=== PATIENT | female | born 1975 | race Caucasian/White ===

== ENCOUNTER 2024-03-26 15:58 | Outpatient (CLI) | payer OTHER, SELFPAY ==
--- NOTE | ~2024-03-26 | MM_ITS ---
EXAMINATION: MM screening slim BI w dinesh HISTORY: Screening TECHNIQUE: Craniocaudal and mediolateral oblique 3-D tomosynthesis images were obtained and synthetic 2-D images were generated. CAD analysis was submitted and interpreted. COMPARISON: No prior mammogram is available for comparison at this institution. BREAST PARENCHYMAL COMPOSITION: There are scattered areas of fibroglandular density. FINDINGS: There is no evidence of suspicious mass, calcification, or architectural distortion to sugg est malignancy in either breast. There has been no suspicious interval change. IMPRESSION: 1. No mammographic evidence of malignancy. 2. Recommend routine screening mammography in one year. BI-RADS Category 1: Negative Reviewed, dictated and finalized at location B.
== END 2024-03-26 15:59 ==
LOC: MICIMG 15:58
PROVIDERS: PCP Nurse Practitioner Obstetrics & Gynecology; Visit Provider Nurse Practitioner Obstetrics & Gynecology
DX: Z12.31 Encounter for screening mammogram for malignant neoplasm of breast (principal)
CPT/HCPCS: 77063; 77067

== ENCOUNTER 2024-09-02 13:39 | Outpatient (CLI) | payer OTHER, SELFPAY ==
--- NOTE | 2024-09-02 14:30 | NEURO_ITS ---
Impression: # Complains of numbness with nocturnal paresthesia of left hand. Non-diabetic. # Left severe Carpal Tunnel Syndrome. # No ulnar neuropathy. # Mildly abnormal Needle/EMG exam in left APB. Nerve Conduction Studies Anti Sensory Summary Table Stim Site NR Peak (ms) P-T Amp (?V) Site1 Site2 Delta-P (ms) Dist (cm) Zachary (m/s) Left Median Anti Sensory (2-3nd Digit) Wrist 6.3 25.5 Wrist 2-3nd Digit 6.3 14.0 22 Wrist 6.2 11.4 Wrist 2-3nd Digit 6.3 14.0 22 Right Median Anti Sensory (2-3nd Digit) Wrist 2.6 71.0 Wrist 2-3nd Digit 2.6 14.0 54 Wrist 2.7 59.8 Wrist 2-3nd Digit 2.6 14.0 54 Left Radial Anti Sensory (Base 1st Digit) Wrist 1.9 38.1 Wrist Base 1st Digit 1.9 0.0 Right Radial Anti Sensory (Base 1st Digit) Wrist 1.8 38.6 Wrist Base 1st Digit 1.8 0.0 Left Ulnar Anti Sensory (5th Digit) Wrist 2.3 76.7 Wrist 5th Digit 2.3 14.0 61 Right Ulnar Anti Sensory (5th Digit) Wrist 2.5 91.3 Wrist 5th Digit 2.5 14.0 56 Motor Summary Table Stim Site NR Onset (ms) O-P Amp (mV) Site1 Site2 Delta-0 (ms) Dist (cm) Zachary (m/s) Left Median Motor (Abd Poll Brev) Wrist 8.0 3.1 Elbow Wrist 4.8 29.0 60 Elbow 12.8 3.4 Right Median Motor (Abd Poll Brev) Wrist 3.1 9.6 Elbow Wrist 4.2 26.0 62 Elbow 7.3 9.1 Left Ulnar Motor (Abd Dig Minimi) Wrist 2.5 7.8 A Elbow Wrist 5.0 31.0 62 A Elbow 7.5 7.4 Right Ulnar Motor (Abd Dig Minimi) Wrist 2.7 6.0 A Elbow Wrist 4.6 29.0 63 A Elbow 7.3 6.2 F Wave Studies NR F-Lat (ms) L-R F-Lat (ms) Left Median (Mrkrs) (Abd Poll Brev) 27.71 1.70 Right Median (Mrkrs) (Abd Poll Brev) 26.02 1.70 Left Ulnar (Mrkrs) (Abd Dig Min) 25.82 0.56 Right Ulnar (Mrkrs) (Abd Dig Min) 25.26 0.56 EMG Side Muscle Nerve Root Ins Act Fibs Amp Dur Recrt Comment Right 1stDorInt Ulnar C8-T1 Nml Nml Nml Nml Nml Right Ext Indicis Radial (Post Int) C7-8 Nml Nml Nml Nml Nml Right Ext Digitorum Radial (Post Int) C7-8 Nml Nml Nml Nml Nml Right BrachioRad Radial C5-6 Nml Nml Nml Nml Nml Right PronatorTeres Median C6-7 Nml Nml Nml Nml Nml Right Abd Poll Brev Median C8-T1 Nml Nml Nml Nml Nml Right ABD Dig Min Ulnar C8-T1 Nml Nml Nml Nml Nml Left 1stDorInt Ulnar C8-T1 Nml Nml Nml Nml Nml Left Ext Indicis Radial (Post Int) C7-8 Nml Nml Nml Nml Nml Left Ext Digitorum Radial (Post Int) C7-8 Nml Nml Nml Nml Nml Left BrachioRad Radial C5-6 Nml Nml Nml Nml Nml Left PronatorTeres Median C6-7 Nml Nml Nml Nml Nml Left Abd Poll Brev Median C8-T1 Nml Nml Nml >12ms +2 Left ABD Dig Min Ulnar C8-T1 Nml Nml Nml Nml Nml MTDD
== END 2024-09-02 13:40 | disposition home or self-care (01) ==
LOC: ANHNEURO 13:41
PROVIDERS: PCP Family Medicine; Visit Provider Nurse Practitioner Adult Health
DX: G56.02 Carpal tunnel syndrome, left upper limb (principal); R94.131 Abnormal electromyogram [EMG]
CPT/HCPCS: 95886; 95911

== ENCOUNTER 2025-01-01 05:52 | Day surgery (SDC) | payer OTHER, SELFPAY ==
[2024-12-11 10:26] VITALS: BMI 31.8
--- OUTSIDE RECORDS SUMMARY | 2025-01-01 06:06 | XMS_ITS ---
Author Organization Unknown Medications Medication Instructions Effective Dates (start - stop) Status 3 ML liraglutide 6 MG/ML Pen Injector [Saxenda] [id number]:00:00.000+00:0 0 - Completed 3 ML liraglutide 6 MG/ML Pen Injector [Saxenda] [id number]:00:00.000+00:0 0 - Completed 3 ML liraglutide 6 MG/ML Pen Injector [Saxenda] [id number]:00:00.000+00:0 0 - Completed 3 ML liraglutide 6 MG/ML Pen Injector [Saxenda] [id number]:00:00.000+00:0 0 - Completed 3 ML liraglutide 6 MG/ML Pen Injector [Saxenda] [id number]:00:00.000+00:0 0 - Completed 3 ML liraglutide 6 MG/ML Pen Injector [Saxenda] [id number]:00:00.000+00:0 0 - Completed 3 ML liraglutide 6 MG/ML Pen Injector [Saxenda] [id number]:00:00.000+00:0 0 - Completed nitrofurantoin, macrocrystal s 50 MG Oral Capsule [id number]:00:00.000+00:0 0 - Completed - [id number]:00 :00.000+00:00 - Completed 24 HR oxybutynin chloride 10 MG Extended Release Oral Tablet [id number]:00:00.000+0 0:00 - Completed 3 ML liraglutide 6 MG/ML Pen Injector [Saxenda] [id number]:00:00.000+00:0 0 - Completed 24 HR oxybutynin chloride 10 MG Extended Release Oral Tablet [id number]:00:00.000+0 0:00 - Completed 3 ML liraglutide 6 MG/ML Pen Injector [Saxenda] [id number]:00:00.000+00:0 0 - Completed cefdinir 300 MG Oral Capsule 11-29-03T:00:00.000+00:00 - Completed 3 ML liraglutide 6 MG/ML Pen Injector [Saxenda] [id number]:00:00.000+00:0 0 - Completed {21 (methylprednisolone 4 MG Oral Tablet) } Pack [id number]:00:00.000+00:0 0 - Completed nitrofurantoin, macrocrystal s 25 MG / nitrofurantoin, monohydrate 75 MG Oral Capsule [id number]:00:00.000+00:0 0 - Completed 24 HR oxybutynin chloride 10 MG Extended Release Oral Tablet [id number]:00:00.000+0 0:00 - Completed nitrofurantoin, macrocrystal s 50 MG Oral Capsule [id number]:00:00.000+00:0 0 - Completed nystatin 090190 UNT/ML / triamcinolone acetonide 1 MG/ML Topical Cream [id number]:00:00.000+00:0 0 - Completed Patient Care team information Name Category Status Period Participants - - Proposed period not known -
--- OUTSIDE RECORDS SUMMARY | 2025-01-01 06:06 | XMS_ITS | Referral Summary ---
[facility] Address [address] [place] [address] Care Team Providers Care Braid Folder Name Role Phone Demian Nolen MD Primary Care Provider Allergies Active Allergy Reactions Criticality Noted Date Comments Sulfa (Sulfonamide Antibiotics) Rash,Fever Medium Reaction: Rash, Medications omeprazole (PriLOSEC) 10 mg capsule 10 mg. 0 0 03/29/2015 Active tranexamic acid (LYSTEDA) 650 mg tabletIndicatio ns:Menorrhagia 650 mg 2 tablets tid on heavy days for up to 5 days 45 tablet 1 01/02/2019 Active phentermine 37.5 mg capsule Take by mouth daily 05/09/2021 Active mometasone (NASONEX) 50 mcg/actuation nasal spray USE 2 SPRAYS INTO EACH NOSTRIL DAILY NEEDED 05/09/2021 Active Active Problems Problem Noted Date Diagnosed Date Dystrophia unguium 05/23/2021 Onychomycosis due to dermatophyte 05/23/2021 Gastroesophageal reflux disease 03/29/2015 Overview (01/26/2017): GERD Immunizations Immunization Administration Dates Next Due Influenza, Quadrivalent, Spl it, Preservative Free, Intramuscular 09/08/2020 Moderna SARS-CoV-2 Monovalent Vaccination (12+ Y RS) 01/28/2021,12/29/2020 Social History Tobacco Use Types Packs/Day Years Used Date Smoking Tobacco: Never Smokeless Tobacco: Never Alcohol Use Standard Drinks/Week Comments Yes 0 (1 standard drink = 0.6 oz pur e alcohol) Comments No Sex and Gender Information Value Date Recorded Sex Assigned at Not on file Legal Sex Female 4:10 PM [employer] Gender Identity Not on file Sexual Orientation Not on file Last Filed Vital Signs Vital Sign Reading Time Taken Comments Blood Pressure 122/70 05/23/2021 1:39 PM CDT Pulse - - Temperature - - Respiratory Rate - - Oxygen Saturation - - Inhaled Oxygen Concentration - - Weight 94.3 kg (208 lb) 05/23/2021 1:39 PM CDT Height 161.3 cm (5' 3.5 ) 05/23/2021 1:39 PM CDT Body Mass Index 36.27 05/23/2021 1:39 PM CDT Plan of Treatment Not on file Procedures Procedure Name Priority Date/Time Associated Diagnosis Comments SCREENING MAMMOGRAM BILATERAL W NASEEM Schedule Routine, Read Routine (OP Routine) 05/23/2021 3:32 PM CDT Screening breast examination PAP AND HIGH RISK HPV, REFLEX TO GENOTYPING Routine 05/23/2021 3:01 PM CDT Well woman exam Screening for malignant neoplasm of the cervix Screening for human papillomavirus from Last 3 Months or Most Recently Relevant to Health Maintenance Results * Screening Mammogram Bilateral W Naseem (05/23/2021 3:32 PM CDT) Anatomical Region Laterality Modality Breast Bilateral Mammography Narrative 05/23/2021 5:51 PM CDT Screening Mammogram Bilateral W Naseem: 05/23/21 Clinical: Screening breast examination. Prior Study Comparisons: Comparison was made to the prior available relevant studies at the time of interpretation. Findings: Bilateral No significant masses, malignant type calcifications, skin thickening, nipple retraction, or significant lymphadenopathy is noted in either breast. The CAD review showed no significant findings. The breasts have scattered areas of fibroglandular density. The patient will be notified of results by letter. Impression: BI-RADS ATLAS category (overall): 1 Negative There is no mammographic evidence of malignancy. Routine Screening Mammogram in 1 Yr is recommended. 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 The content of this report is essential for diagnosis and may provide important critical findings. This information may be unfamiliar to patients to review without a medical professional present. It is advised that the patient review this report in the presence of a health care provider who can answer questions and explain the details. Patient Name: PHAM MCKEON Address: [address] [place] [address] Gender: F : 1975 (Age: 45) Service: Location: N : [id number] Hospital #: [id number] Patient [place] [facility] [place]CIMEN Taken: 05/23/2021 Reported: 05/29/2021 Physician(s): Sherri Rubio M.D. FINAL DIAGNOSIS: Specimen Type: - ThinPrep Pap and HPV w/ reflex Genotyping Statement of Specimen Adequacy: Source: Cervical/Endocervical - Satisfactory for interpretation - Endocervical /Transformation Zone component present - Case screened using computer assisted imaging technology General Categorization: - Negative for intraepithelial lesion or malignancy Interpretation: - Blood present jat/05/29/2021 11:49 MAKSIM Bazan (ASCP) Report Reviewed and Electronically Signed By MAKSIM Bazan (ASCP) Clerical Data Follow A; G0145 DIAGNOSIS COMMENT: Ancillary Testing: HPV High Risk Group (16, 18, 31, 33, 35, 39, 45, 51, 52, 56, 58, 59, 66 and 68) - Not Detected Reference Range: Not Detected This test was performed using the NATALIA 4800 CLINICAL DIAGNOSIS AND HISTORY Last Menstrual Period: 05-14-21 REPORT IMAGES AND/OR SCANNED DOCUMENTS ONLY VIEWABLE IN PDF FORMAT The Pap test is a screening test used to aid in the detection of cervical cancer and its precursors. It should not be the sole means by which malignant and premalignant lesions are diagnosed. Both false negative and false positive results may occur. It also has poor sensitivity for the detection of endometrial lesions and should not be used to evaluate suspected endometrial abnormalities. For these reasons it is most important to obtain Pap tests at regular intervals, as recommended by your physician or nurse practitioner. us Sherri Rubio MD LAB CYTOLOGY ORDERABLES Fin al Result PATHOLOGY [facility] Laboratory Receiving [address] [place] [address] from Last 3 Months or Most Recently Relevant to Health Maintenance [facility] [employer] Care Teams Braid Folder Relationship Specialty Start Date End Date Demian Nolen MD PCP - General Family Medicine 10/17/17
--- OUTSIDE RECORDS SUMMARY | 2025-01-01 06:06 | XMS_ITS | Data Portability ---
Author Organization [facility] [place] Address [address] [place] [place] [address] Care Team Providers Care Customer Care Representative Name Role Phone CAMMY DIAZ Primary Care Provider Assessment Encounter Date Assessment Date Assessment LastModified by Organization Details LastModified Time 10/04/2022 10/04/2022 Annual gynecological exam performed. Patient will come back in a year unless there are new symptoms. [email or web address] Not available 10/04/2022 16:53:38 11/29/2023 11/29/2023 Annual gynecological exam performed. Patient will come back in a year unless there are new symptoms. [email or web address] Not available 11/29/2023 17:05:04 Plan of Treatment Reminders Order Date Submit Date Provider Last Modified By Organization Details Last Modified Time Details Appointments None recorded. Lab urinalysis, dipstick 2021 022 [email or web address] [place], [address], [place], [address], 12:06:32 Referral urogynecolo gist referral 2021 022 SHERIDAN Coppola MD, [address], [address], [place], [address], 18:05:35 Procedures None recorded. Surgeries None recorded. Imaging MAMMO, screening, bilateral 2023 024 [email or web address] [facility], [address], [address], [place], [address], 4 17:31:09 MAMMO, screening, bilateral 2021 022 SHERIDAN [facility], [address], [address], [address], 3 05:01:37 Medication Orders Pyridium 100 mg tablet 2023 024 [email or web address] [facility]/Pharmacy #[id number], [address] [place], [address], 4 17:07:57 nystatin-tr iamcinolone 100,000 unit/g-0.1 % topical cream 2022 023 [email or web address]/Pharmacy #[id number], [address] [place], [address], 4 17:10:23 Pyridium 100 mg tablet [email or web address]/Pharmacy #[id number], [address] [place], [address], 4 17:07:57 Macrobid 100 mg capsule 2021 022 [email or web address] 1 [facility]/Pharmacy #[id number], [address] [place], [address], 3 09:51:21 Patient TargetsNo targets recorded. Patient InstructionsNo instructions recorded. Reason for Referral Urogynecologist Referral for Female stress incontinence Referring Physician: Franci Martino, TRANSPORTATION ASSISTANT, Encounter Date: 10/04/2022 Results Created Date Observation Date Name Description Value Unit Range Abnormal Flag Note LastModifiedBy Organization Detail LastModifiedTime 10/04/20 22 10/04/2022 IMAGE GUIDE D PAP AND HPV REGAR DLESS image guided Pap, HPV regardless of Pap result SEE RESULT S BELOW CASE REPOR T: Cytol ogy Gynec ologi elfego Repor t Case: [id number] Autho joseph henley Provi jacob: Fried Sanchez ferro Colle cted: 10/04 1745 TIRE CARE MANAGER Order ing Locat ion: [place] Patho logsofie Recei monty: 10/05 1036 First Scree n: Martha Tatum Speci men: Scree angeline Pap - Image d, Cervi x STATE MENT OF ADEQU ACY: Satis facto ry for evalu ation Trans forma tion zone compo nent prese nt FINAL DIAGN OSIS: Negat lc for Intra epith elial Lespatricio ly or Rishabh crowe (NIL) . Elect nona mcclain marci d by Martha Tatum on 10/06 at 2:16 PM ----- ----- ----- ----- ----- ----- ----- ----- ----- ----- ----- ----- ----- ----- ----- ----- ----- ---- HPV RESUL TS: HPV mRNA E6/E7 : No HPV mRNA Detec lynda NOTE: This high risk HPV mRNA assay detec ts fourt een high- risk HPV types (16, 18, 31, 33, 35, 39, 45, 51, 52, 56, 58, 59, 66, 68) witho ut diffe renti ation . COMME NT: Note: This speci men was revie wed by a Cytot echno logis t and/o r Patho logis t (as indic ated in this repor t) after evalu ation using the Thinp rep Imagi ng Syste m. CLINI ELFEGO INFOR MATIO N: Menst rual Statu s: LMP (if appli cable ): Clini elfego Histo ry/Pr eviou s Pap: Type of Neopl lori (if appli cable ): Signi fican t Clini elfego Findi ngs: Other Histo ry: Hormo keith (if appli cable ): PAP EDUCA PETE L NOTE: The Pap Test is a scree angeline test with an inher ent false negat cl rate. Liqui d-bas ed sampl ing may decre ase, but will not elimi yelena, false negat lc resul ts. A negat lc resul t does not precl ude the prese nce and/o r devel opmen t of disea se, since the prese nce of abnor mal cells in the sampl e depen ds on the locat ion of the lesio n and sampl ing techn ique. Katelin nued regul ar scree angeline is the best metho d of cance r preve ntion . If repor lynda cytol ogic findi ng do not corre late with physi elfego and/o r histo rical findi ngs, furth er inves tigat ion is recom lance d, as clini lauren warra nted. Not Available [facility] (Lab) [address], [place], [address], 10/06/2022 15:19:21 10/04/20 22 10/04/2022 TRICH OMONA S VAGIN DIANE (RRNA ) trichomonas vaginalis ribosomal RNA (rrna) Negati ve negati ve Not Available [facility] (Lab) [address], [place], [address], 10/06/2022 15:19:22 10/04/20 22 10/04/2022 CT/GC (SYLVIA) , THINP REP VIAL chlamydia trachomatis, PCR Negati ve negati ve Not Available [facility] (Lab) [address], [place], [address], 10/06/2022 15:19:22 10/04/20 22 10/04/2022 CT/GC (SYLVIA) , THINP REP VIAL neisseria gonorrhoeae, PCR Negati ve negati ve Not Available [facility] (Lab) [address], [place], [address], 10/06/2022 15:19:22 10/04/20 22 10/04/2022 URINA LYSIS , WITH MICRO SCOPI C color, urine Yellow Not Available [facility] (Lab) [address], [place], [address], 10/07/2022 09:11:05 10/04/20 22 10/04/2022 URINA LYSIS , WITH MICRO SCOPI C clarity, urine Clear Not Available [facility] (Lab) [address], [place], [address], 10/07/2022 09:11:05 10/04/20 22 10/04/2022 URINA LYSIS , WITH MICRO SCOPI C glucose, urine Normal mg/dL negati ve Not Available [facility] (Lab) [address], [place], [address], 10/07/2022 09:11:05 10/04/20 22 10/04/2022 URINA LYSIS , WITH MICRO SCOPI C bilirubin, urine Negati ve negati ve Not Available [facility] (Lab) [address], [place], [address], 10/07/2022 09:11:05 10/04/20 22 10/04/2022 URINA LYSIS , WITH MICRO SCOPI C ketones, urine Negati ve mg/dL negati ve Not Available [facility] (Lab) [address], [place], [address], 10/07/2022 09:11:05 10/04/20 22 10/04/2022 URINA LYSIS , WITH MICRO SCOPI C specific gravity, urine 1.014 . 1.005- 1.035 Not Available [facility] (Lab) [address], [place], [address], 10/07/2022 09:11:05 10/04/20 22 10/04/2022 URINA LYSIS , WITH MICRO SCOPI C blood, urine Negati ve negati ve Not Available [facility] (Lab) [address], [place], [address], 10/07/2022 09:11:05 10/04/20 22 10/04/2022 URINA LYSIS , WITH MICRO SCOPI C pH, urine 6.0 . 5.0-7. 0 Not Available [facility] (Lab) [address], [place], [address], 10/07/2022 09:11:05 10/04/20 22 10/04/2022 URINA LYSIS , WITH MICRO SCOPI C protein, UA Negati ve mg/dL negati ve, 10-20 Not Available [facility] (Lab) [address], [place], [address], 10/07/2022 09:11:05 10/04/20 22 10/04/2022 URINA LYSIS , WITH MICRO SCOPI C nitrite, urine Negati ve negati ve Not Available [facility] (Lab) [address], [place], [address], 10/07/2022 09:11:05 10/04/20 22 10/04/2022 URINA LYSIS , WITH MICRO SCOPI C leukocyte esterase, urine 250 trupti/u L negati ve abnormal Not Available [facility] (Lab) [address], [place], [address], 10/07/2022 09:11:05 10/04/20 22 10/04/2022 URINA LYSIS , WITH MICRO SCOPI C urobilinogen , urine Normal mg/dL normal , <2.0 Not Available [facility] (Lab) [address], [place], [address], 10/07/2022 09:11:05 10/04/20 22 10/04/2022 URINA LYSIS , WITH MICRO SCOPI C RBC, urine 0-2 /hpf none, 0-2 Not Available [facility] (Lab) [address], [place], [address], 10/07/2022 09:11:05 10/04/20 22 10/04/2022 URINA LYSIS , WITH MICRO SCOPI C WBC, urine 15-19 /hpf none, 0-5 abnormal Not Available [facility] (Lab) [address], [place], [address], 10/07/2022 09:11:05 10/04/20 22 10/04/2022 URINA LYSIS , WITH MICRO SCOPI C squamous epithelial cells, urine Few /hpf none abnormal Not Available [facility] (Lab) [address], [place], [address], 10/07/2022 09:11:05 10/04/20 22 10/04/2022 URINA LYSIS , WITH MICRO SCOPI C bacteria, urine Trace /hpf none abnormal Not Available [facility] (Lab) [address], [place], [address], 10/07/2022 09:11:05 10/04/20 22 10/04/2022 URINA LYSIS , WITH MICRO SCOPI C hyaline cast, urine None /lpf none, 0-2 Not Available [facility] (Lab) [address], [place], [address], 10/07/2022 09:11:05 10/04/20 22 10/04/2022 CULTU RE: URINE result report SEE RESULT S BELOW abnormal Test: Cultu re: Urine Speci men Sourc e: Urine Voide d Speci men Type: Urine Speci men Date: 10/04 5:26 PM Resul t Date: 10/07 8:08 AM Resul t Statu s: Final resul t Johnathan putnam: Yes Benjamín hale Lab: [facility] [address] [address] Tel: CULTU RE ----- ----- ----- --- >100, 000 CFU/m l Esche tyrone a coli (Abno rmal) PAULCE PTIBI LITY ----- ----- ----- --- Esche tyrone a coli METHO D ERMA ----- ----- ----- ----- ----- ---- ----- ----- ----- ----- ----- - AMIKA DAVID <=16 ug/mL Susce ptibl e AMPIC ILLIN >16 ug/mL Resis tant AMPIC ILLIN /SULB ACTAM 16 ug/mL Inter media te AZTRE ONAM <=4 ug/mL Susce ptibl e CEFAZ LEANDER 16 ug/mL Inter media te CEFEP AMBER <=2 ug/mL Susce ptibl e CEFOX ITIN <=8 ug/mL Susce ptibl e CEFTA ZIDIM E <=1 ug/mL Susce ptibl e CEFTR IAXON E <=1 ug/mL Susce ptibl e CIPRO FLOXA DAVID <=1 ug/mL Susce ptibl e GENTA MICIN <=1 ug/mL Susce ptibl e LEVOF LOXAC IN <=0.2 5 ug/mL Susce ptibl e MEROP ENEM <=1 ug/mL Susce ptibl e NITRO FURAN TOIN <=32 ug/mL Susce ptibl e PIPER ACILL IN/TA ZOBAC CASIANO <=4 ug/mL Susce ptibl e TOBRA MYCIN <=1 ug/mL Susce ptibl e TRIME THOPR IM/MONTANA LFAME THOXA ZOLE <=2 ug/mL Susce ptibl e Not Available [facility] (Lab) [address], [place], [address], 10/07/2022 09:11:05 10/04/20 22 10/04/2022 urina lysis , dipst ick Leukocytes trace Not Available [facility] [address], [place], [address], 10/04/2022 17:33:41 10/04/20 22 10/04/2022 urina lysis , dipst ick Nitrite negati ve Not Available [place] [address], [place], [address], 10/04/2022 17:33:41 10/04/20 22 10/04/2022 urina lysis , dipst ick Urobilinogen negati ve Not Available [place] [address], [place], [address], 10/04/2022 17:33:41 10/04/20 22 10/04/2022 urina lysis , dipst ick Protein trace Not Available [place] [address], [place], [address], 10/04/2022 17:33:41 10/04/20 22 10/04/2022 urina lysis , dipst ick pH 5 Not Available [place] [address], [place], [address], 10/04/2022 17:33:41 10/04/20 22 10/04/2022 urina lysis , dipst ick Blood + Not Available [place] [address], [place], [address], 10/04/2022 17:33:41 10/04/20 22 10/04/2022 urina lysis , dipst ick Specific Ashley 1.015 Not Available [facility] [place] [address], [place], [address], 10/04/2022 17:33:41 10/04/20 22 10/04/2022 urina lysis , dipst ick Ketone negati ve Not Available [place] [address], [place], [address], 10/04/2022 17:33:41 10/04/20 22 10/04/2022 urina lysis , dipst ick Bilirubin negati ve Not Available [place] [address], [place], [address], 10/04/2022 17:33:41 10/04/20 22 10/04/2022 urina lysis , dipst ick Glucose negati ve Not Available [place] [address], [place], [address], 10/04/2022 17:33:41 10/04/20 22 10/04/2022 urina lysis , dipst ick Appearance cloudy Not Available [facility] cause[facility] [address], [place], [address], 10/04/2022 17:33:41 10/04/20 22 10/04/2022 urina lysis , dipst ick Color yellow Not Available [place] [address], [place], [address], 10/04/2022 17:33:41 11/30/19 24 11/30/2023 IMAGE GUIDE D PAP AND HPV REGAR DLESS image guided Pap, HPV regardless of Pap result SEE RESULT S BELOW CASE REPOR T: Cytol ogy Gynec ologi elfego Repor t Case: [id number] Autho joseph lory Provi jacob: Sanchez Slater Colle cted: 11/30 1027 TIRE CARE MANAGER Order ing Locat ion: [place] Patho logy Recei monty: 12/03 0819 First Scree n: Tommy Bates, CT Speci men: Scree angeline Pap - Image d, Cervi x STATE MENT OF ADEQU ACY: Satis facto ry for evalu ation Trans forma tion zone compo nent prese nt Parti ally obscu ring infla mmati on prese nt. FINAL DIAGN OSIS: Negat lc for Intra epith elial Lesio n or Rishabh crowe (NIL) . Elect nona covarrubias d by Tommy Bates, CT on 2023 at 11:03 AM ----- ----- ----- ----- ----- ----- ----- ----- ----- ----- ----- ----- ----- ----- ----- ----- ----- ---- HPV RESUL TS: HPV mRNA E6/E7 : No HPV mRNA Detec lynda NOTE: This high risk HPV mRNA assay detec ts fourt een high- risk HPV types (16, 18, 31, 33, 35, 39, 45, 51, 52, 56, 58, 59, 66, 68) witho ut diffe renti ation . COMME NT: This speci men was revie wed by a Cytot echno logis t and/o r Patho logis t (as indic ated in this repor t) after evalu ation using the Thinp rep Imagi ng Syste m. CLINI ELFEGO INFOR MATIO N: Menst rual Statu s: LMP (if appli cable ): Clini elfego Histo ry/Pr eviou s Pap: Type of Neopl lori (if appli cable ): Signi fican t Clini elfego Findi ngs: Other Histo ry: Hormo keith (if appli cable ): PAP EDUCA PETE L NOTE: The Pap Test is a scree angeline test with an inher ent false negat lc rate. Liqui d-bas ed sampl ing may decre ase, but will not elimi yelena, false negat lc resul ts. A negat lc resul t does not precl ude the prese nce and/o r devel opmen t of disea se, since the prese nce of abnor mal cells in the sampl e depen ds on the locat ion of the lesio n and sampl ing techn ique. Katelin nued regul ar scree angeline is the best metho d of cance r preve ntion . If repor lynda cytol ogic findi ng do not corre late with physi elfego and/o r histo rical findi ngs, furth er inves tigat ion is recom lance d, as clini lauren abbasi nted. Not Available [facility] (Lab) [address], [place], [address], 12/06/2023 12:06:30 11/30/19 24 11/30/2023 TRICH OMONA S VAGIN DIANE (RRNA ) trichomonas vaginalis ribosomal RNA (rrna) NEGATI VE negati ve Not Available [facility] (Lab) [address], [place], [address], 12/06/2023 12:06:31 11/30/19 24 11/30/2023 CT/GC (SYLVIA) , THINP REP VIAL chlamydia trachomatis, PCR NEGATI VE negati ve Not Available [facility] (Lab) [address], [place], [address], 12/06/2023 12:06:31 11/30/19 24 11/30/2023 CT/GC (SYLVIA) , THINP REP VIAL neisseria gonorrhoeae, PCR NEGATI VE negati ve Not Available [facility] (Lab) [address], [place], [address], 12/06/2023 12:06:31 03/27/20 24 03/26/2024 MAMMO , scree angeline, bilat eral No observ ation record ed. [facility] [address], [place], [address], 04/07/2024 13:21:37 Result Notes None recorded. Procedures Surgical History Date Name Laterality Status Provider Name and Address Organization Details Recorded Time 4 I&D completed Franci Martino MIYA- [address], [place], [address], [facility] 12/12/2023 17:32:22 4 Date of Last Pap Smear completed Emily Barron [facility] 12/12/2023 17:08:58 Imaging Results Imaging Date Name Status LastModified by Organiz ation Details LastModified Time 03/26/2024 MAMMO, screening, bilateral completed [facility] [address], [place], [address], 04/07/2024 13:21:37 Procedure Notes None recorded. Medical Equipment None Reported. Allergies Allergen ID Allergen Name Allergen Category Reaction Reaction Severity Criticality Documentation Date Start Date Code Code System Note Provider Name and Address Organization Details Recorded Time 70510 Substance with sulfonami de structure and antibacte rial mechanism of action (substanc e) medicatio n Not available Not available Not available 10/04/2022 65628 8003 SNOMED Mary Beth guzman, [facility] 2 16:56:41 Medications Name Sig Start Date Stop Date Status Note LastModified by Organization Details LastModified Time amoxicillin 500 mg capsule TAKE 1 TABLET BY MOUTH EVERY 8 HOURS FOR 7 DAYS 10/04 completed Not Available Not Available Not Available nitrofurant oin macrocrysta l 50 mg capsule TAKE 1 CAPSULE BY MOUTH EVERY DAY NEEDED 12/12 completed Not Available Not Available Not Available oxybutynin chloride ER 10 mg tablet,exte nded release 24 hr TAKE 1 TABLET BY MOUTH EVERY DAY 03/03 completed Not Available Not Available Not Available ciprofloxac in 500 mg tablet TAKE 1 TABLET BY MOUTH EVERY 12 HOURS 10/04 completed Not Available Not Available Not Available phenazopyri dine 100 mg tablet TAKE 1 TABLET BY MOUTH THREE TIMES A DAY NEEDED FOR 7 DAYS 12/12 completed Not Available Not Available Not Available benzonatate 100 mg capsule TAKE 1 CAPSULE BY MOUTH THREE TIMES A DAY NEEDED FOR COUGH 10/04 completed Not Available Not Available Not Available nystatin-tr iamcinolone 100,000 unit/g-0.1 % topical cream APPLY TO THE AFFECTED AREA(S) BY TOPICAL ROUTE 2-3X/DAY NEEDED 11/29 completed Not Available Not Available Not Available ergocalcife rol (vitamin D2) 1,250 mcg (50,000 unit) capsule 1250 MCG ORALLY WEEKLY active Not Available Not Available No t Available methylpredn isolone 4 mg tablets in a dose pack TAKE 6 TABLETS ON DAY 1 DIRECTED ON PACKAGE AND DECREASE BY 1 TAB EACH DAY FOR A TOTAL OF 6 DAYS 10/04 completed Not Available Not Available Not Available ferrous sulfate 325 mg (65 mg iron) tablet,will yed release 325 MG ORALLY DAILY active Not Available Not Available No t Available ondansetron 4 mg disintegrat ing tablet DISSOLVE 1 TABLET IN MOUTH EVERY 8 HOURS NEEDED FOR NAUSEA AND VOMITING 10/04 completed Not Available Not Available Not Available cefdinir 300 mg capsule TAKE 1 CAPSULE BY MOUTH EVERY 12 HOURS FOR 10 DAYS 10/04 completed Not Available Not Available Not Available amoxicillin 875 mg-potassiu m clavulanate 125 mg tablet TAKE 1 TABLET BY MOUTH TWICE A DAY FOR 10 DAYS 10/04 completed Not Available Not Available Not Available nitrofurant oin monohydrate /macrocryst als 100 mg capsule 03/03 completed Not Available Not Available Not Available Prilosec active Not Available Not Avai lable Not Available Saxenda 3 mg/0.5 mL (18 mg/3 mL) subcutaneou s pen injector INJECT 3 MG (0.5 ML) SUBCUTANE OUSLY DAILY active Not Available Not Available No t Available BD Ultra-Fine Micro Pen Needle 32 gauge x 1/4 FOR USE WITH SAXENDA INJECTION S 11/29 completed Not Available Not Available Not Available BD Yesenia 2nd Gen Pen Needle 32 gauge x /32 10/04 completed Not Available Not Available Not Available Vitals Date Recorded Body height Body mass index (BMI) Body weight Provider Name and Address Organization Details Last Updated DateTime 10/04/2022 160.02 cm 37.6 kg/m2 46457.02 g Mary Beth Vidal [facility] 10/04/2022 16:56:11 Date Recorded Systolic blood pressure Diastolic blood pressure Provider Name and Address Organization Details Last Updated DateTime 10/04/2022 116 mm[Hg] 78 mm[Hg] Franci Martino, [facility]- [address], [place], [address], [facility] 10/06/2022 12:05:40 Date Recorded Body height Body mass index (BMI) Body weight Provider Name and Address Organization Details Last Updated DateTime 03/03/2023 160.02 cm 37 kg/m2 02578.81 g Essie Navarrete [facility] 03/03/2023 09:50:46 Date Recorded Systolic blood pressure Diastolic blood pressure Provider Name and Address Organization Details Last Updated DateTime 03/03/2023 130 mm[Hg] 80 mm[Hg] Franci Martino [facility]- [address], [place], [address], [facility] 03/03/2023 09:59:47 Date Recorded Body height Body mass index (BMI) Body weight Systolic blood pressure Diastolic blood pressure Provider Name and Address Organization Details Last Updated DateTime 11/29/2023 160.02 cm 39.1 kg/m2 606576.9 1 g 129 mm[Hg] 85 mm[Hg] Emily Barron [facility] 17:10:02 Date Recorded Body height Body mass index (BMI) Body weight Provider Name and Address Organization Details Last Updated DateTime 12/12/2023 160.02 cm 39.5 kg/m2 691537.1 g Emily Barron [facility] 12/12/2023 17:07:30 Date Recorded Systolic blood pressure Diastolic blood pressure Provider Name and Address Organization Details Last Updated DateTime 12/12/2023 132 mm[Hg] 80 mm[Hg] Franci Martino, [facility]- [address], [place], [address], [facility] 12/12/2023 17:27:39 Social History Question Answer Notes LastModified by Organizat ion Details LastModified Time Tobacco Smoking Status Never Smoker Nancy guzman, [facility] 03/03/2023 09:42:09 Do You Have An Advance Directive? No Information n ot available 10/04/2022 What Is Your Level Of Alcohol Consumption? Occasional Information not available 10/04/2022 Are You Blind Or Do You Have Difficulty Seeing? No Information n ot available 10/04/2022 What Is Your Level Of Caffeine Consumption? Moderate Information not available 10/04/2022 How Much Tobacco Do You Chew? None Information not available 10/04/2022 In The 14 Days Before Symptom Onset, Have You Had Close Contact With A Laboratory-confirm ed COVID-19 While That Case Was Ill? No Information n ot available 10/04/2022 In The 14 Days Before Symptom Onset, Have You Had Close Contact With A Person Who Is Under Investigation For COVID-19 While That Person Was Ill? No Information not available 10/04/2022 Have You Been To An Area Known To Be High Risk For COVID-19? No Information not available 10/04/2022 Are You Deaf Or Do You Have Serious Difficulty Hearing? No Information not available 10/04/2022 What Type Of Diet Are You Following? REGULAR Information n ot available 10/04/2022 What Is The Highest Grade Or Level Of School You Have Completed Or The Highest Degree You Have Received? [id number] Information not available 10/04/2022 Are There Any Guns Present In Your Home? Yes Information not available 10/04/2022 Have You Ever Been Counseled For Unhealthy Alcohol Use? No [email or web address] Information not available 03/03/2023 Do You Use Protection During Sex? No Information not available 10/04/2022 Do You Use Your Seat Belt Or Car Seat Routinely? Yes Information not available 10/04/2022 Do You Have Smoke And Carbon Monoxide Detectors In Your Home? Yes Information not available 10/04/2022 How Much Tobacco Do You Smoke? No Information not available 10/04/2022 Do You Use Any Illicit Or Recreational Drugs? No Information not available 10/04/2022 Do You Use Sunscreen Routinely? Yes Information not available 10/04/2022 Has Tobacco Cessation Counseling Been Provided? No [email or web address] Information not available 03/03/2023 Have You Used IV Drugs? No Information not available 10/04/2022 Sex: Unknown Functional Status Question Answer Note LastModified by Organizat ion Details LastModified Time Do you have difficulty walking or climbing stairs? No Information not available 03/03/2023 Are you able to walk? YESWOREST Information not available 10/04/2022 Are you able to care for yourself? Yes Information not available 03/03/2023 Do you have difficulty dressing or bathing? No Information not available 03/03/2023 What is your exercise level? Occasional Information not available 10/04/2022 Mental Status None recorded. Family History Relationship Description Onset Age of this Age Resolved Age Notes LastModified by Organization Details LastModified Time Maternal Aunt Malignant tumor of breast [id number] Not available 03/03 09:51:13 Maternal Grandmother Malignant tumor of ovary [id number] Not available 03/03 09:51:13 Paternal Grandfather Diabetes mellitus [email or web address] Not available 03/03 09:51:13 Paternal Uncle Diabetes mellitus [id number] Not available 03/03 09:51:13 Medical History Condition Response Allergies (Food, seasonal, environmental ) N Other Y Drug/Latex Allergies/Reactions N Blood Transfusion N Breast Cancer N Dermatologic Disorders N Lung Disease N Defects or Inherited Disease N Breast Problem N Gestational Diabetes N Hematologic disorders N Anesthesia Complications N History of STI N Deep Vein Thrombosis N Polycystic ovary syndrome N Anxiety Disorder N Autoimmune disease N Arthritis N Polyps N Infertility N Acid Reflux (GERD) Y History of abnormal pap N Cancer N Varicosities N Stroke N Neurologic/Epilepsy N Endometriosis N High Cholesterol N Fibromyalgia N Headaches N Kidney Disease N Heart Problems N Thyroid Problems N Kidney or Bladder Problems N GI Problems N Eating Disorder N Anemia N Art (IVF or FET) N Psychiatric Illness N Ovarian Cancer N Diabetes N Pulmonary (TB, Asthma) N Hepatitis/Liver Disease N No Past Medical History N Eczema N Urinary Tract Infection Y Abuse/Domestic Violence N Asthma N Trauma/Violence N Depression/ depression N Heart Disease N Pre-Eclampsia N Hypertension N Osteoporosis N Thrombophilias N Gynecological History Statement/Question Response Abnormal Pap N Date of Last Mammogram Flow Moderate Date of LMP 10/09/2023 On BCP's at Conception? N Was last menstrual period normal N STIs/STDs N HPV Vaccine N Duration of Flow (days) 5 Current Control Method Partner Vas ectomy Age at First Child 34 Are cycles usually normal Y Sexually Active? Y Menses Monthly N Date of DEXA bone scan Age of first menstrual cycle 15 Date of Last Pap Smear 11/30/2023 Sexual Problems? Y LMP Definite N Obstetrics History GPAL:G 2 P 1 0 1 1 Type Value Full Term 1 Spontaneous 1 Living 1 Total 2 Past Encounters Encounter ID Performer Location Encounter Start Date Encounter Closed Date Diagnosis/Indication Diagnosis SNOMED-CT Code Diagnosis ICD10 Code Diagnosis Note [id number] Franci Martino [facility] [address] [address] 10/04/2022 16:47:23 10/05/2022 14:37:08 Gynecologic examination 21541836 Z01.419 Suggested Calcium with Vitamin D 1200-1500m g daily. Patient advised to get an annual flu shot in the fall and she could obtain at [facility] or [facility]. Also to obtain TDap vaccinatio n if you have not had one in the last 10 years. Recommend yearly mammograms . Encouraged monthly self breast exams. Encourage safe sexual practices, to use condoms and limit partners if not already in a monogamous relationsh ip. Engage in daily exercise of low impact aerobic exercise 45-60 minutes 4-5 times weekly. Avoid tobacco and illicit drugs as well as using moderation with alcohol intake less than 1-2 8 oz beverages daily. This lifestyle behavior pattern will lead to less health conditions and longer life span. If BMI greater than 25 weight watchers or dietary consult advised. All questions have been answered. Patient appears to understand informatio n, but if you have any questions please call or respond to this email. Pap/hpv sentSTD Screen sentGeneti c Screen discussedC olon Screen PCP UTDDexa Screen naRoutine Labs PCP Susie ordered Screening mammography 24 [id number] Z12.31 Increased frequency of urination 552624259 R35.0 Post coitalPost periodRx abx helpedAzo- worksSweet tea & waterSUI +??vag estrogen needed?Ref er to Urogyn for urethral hypermobil ity/PAT.+U TI on Dip today.Will reach out with culture results. Female str ess incontinence [id number] N39.3 N32.89 Refer to urogyn for further evaluation and options which include pessary, PT, Surgical options.Jana y need additional bladder testing/ot her evaluation [id number] Franci Martino , [facility] [address] [address] 03/03/2023 09:41:31 03/05/2023 09:48:20 Labial cyst [id number] N90.7 Right inner labial sebaceous cyst lower segment that is less than 0.5mm in size present.No t affecting her quality of life but felt it should be checked out to ensure this was not something to worry about. I have reassured her that this is usually a benign problem; and if it increases in size/begin s to physiclly cause problems or mentally asthetical ly bothering her we can remove this. Will monitor for now & reach out if changes.Wi ll send Mycolog ointment for vulval skin irritation in this area from using tampons. Time spent in visit is a total of 15 mins with at least 50% of visit consisting of counseling and review of plan of care. [id number] Franci Martino [facility] [address] [address] 11/29/2023 16:57:16 12/04/2023 09:00:34 Gynecologic examination [id number] Z01.419 Z11.51 Suggested Calcium with Vitamin D 1200-1500m g daily. Patient advised to get an annual flu shot in the fall and she could obtain at [facility] or [facility] clinic. Also to obtain TDap vaccinatio n if you have not had one in the last 10 years. Recommend yearly mammograms . Encouraged monthly self breast exams. Encourage safe sexual practices, to use condoms and limit partners if not already in a monogamous relationsh ip. Engage in daily exercise of low impact aerobic exercise 45-60 minutes 4-5 times weekly. Avoid tobacco and illicit drugs as well as using moderation with alcohol intake less than 1-2 8 oz beverages daily. This lifestyle behavior pattern will lead to less health conditions and longer life span. If BMI greater than 25 weight watchers or dietary consult advised. All questions have been answered. Patient appears to understand informatio n, but if you have any questions please call or respond to this email. Pap/hpv sentSTD Screen sentGeneti c Screen discussedC olon Screen PCP UTDDexa Screen naRoutine Labs PCP UTDmammалександр ordered Screening mammography 24 [id number] Z12.31 Dysuria 77155877 R30.0 PRN use [id number] Franci Martino [facility] [address] [address] 12/12/2023 16:59:01 12/12/2023 17:46:09 Labial cyst [id number] N90.7 Right inner labial sebaceous cyst lower segment that is less than 1 cm in size present & removed.Se e procedure notesPost- procedure instructio ns given with understand ing verbalized . Health Concerns Section Related Observation LastModified by Organization Detai ls LastModified Time None Recorded Concern Status LastModified by Organization Details LastModified Time None Recorded Advance Directives Directive N: Payers Encounter Date Sequence Insurance Name Policy Number Policy Angel Covered Member ID Angel Member ID Guarantor Name 10/04/2022 1 [employer] [id number] Pham R Everright [id number] Pham Everright 03/03/2023 1 [employer] [id number] Pham R Everright [id number] Pham Everright 11/29/2023 1 [employer] [id number] Pham R Everright [id number] Pham Everright 12/12/2023 1 [employer] [id number] Pham R Everright [id number] Pham Everright Notes Date Note Type Note Provider Name and Address Organization Details Recorded Time 10/04/2022 text/html Annual GYNReport ed bypatient.Menstrua l cycle:Perimenopaus al(Periods most months but starting to skip a month here or there. ) Urinary symptoms:No hematuria;Stress incontinence;Incre ased urinary frequency(specific ally post coital & post-menses) Vulva:No genital lesion Vagina:Normal vaginal discharge Breast:No breast pain; No breast lump; No nipple discharge Current Contraception:Part ner had vasectomy Sexual complaints:No sexual complaints; No pain during intercourse; Normal libido Menopausal Symptoms:No menopausal symptoms; Normal vaginal lubrication Psychological symptoms:No depression; No anxiety; No PMDD Preventive measures:Encourage self breast examination; Encourage regular exercise; Encourage no tobacco use; Encourage regular mammograms starting age 40; Followed with yearly pap smears; Needs to schedule mammogram; Up to date on colonoscopy screening [facility] [address], [place], [address], [facility] 10/06/2022 12:06:47 03/03/2023 text/html Here today for inner labial bump. Noticed this past week after using tampons that seemed irritate her introital opening.Bump does not hurt.Just felt it there. Monogamous-decline d need std screenNeg pain of abd/pelvis/flankNe g urinary sx'sNeg GI sx'sNeg N/V/F/C/DNeg Vag d/c, odor, irritation, itching [facility] [address], [place], [address], [facility] 03/03/2023 10:12:04 11/29/2023 text/html Annual GYNReport ed bypatient.Menstrua l cycle:Normal menses Urinary symptoms:No hematuria; No incontinence Vulva:No genital lesion Vagina:Normal vaginal discharge Breast:No breast pain; No breast lump; No nipple discharge Current Contraception:Sati sfied with current contraception; Partner had vasectomy Sexual complaints:No sexual complaints; No pain during intercourse; Normal libido Menopausal Symptoms:No menopausal symptoms; Normal vaginal lubrication Psychological symptoms:No depression; No anxiety; No PMDD Preventive measures:Encourage self breast examination; Encourage regular exercise; Encourage no tobacco use; Encourage regular mammograms starting age 40 Franci Martino [facility] [address], [place], [address], [facility] 12/04/2023 00:15:40 12/12/2023 text/html Here today for labial sebaceous cyst I&D. Franci Martino [facility] [address], [place], [address], [facility] 12/12/2023 17:32:52 OBGyn Episode Ob Episode Information Episode Created Date Number of Fetuses Patient Bloodtype Patient rh Status Prepregnancy Weight lbs Domestic Partner Domestic Partner Phone Father Name Insulation Applicator Status 03/03/20 23 1 CLOSED Fetus Data First Name Last Name Admitted to NICU Weight (g) Sex Living Outcome Pediatric Complications Fetus ID Race Codes Race Delivery Type , Spontane ous Matt Calculation Initial Matt Date Initial Exam Date Initial Exam Provider Initial Ultrasound Date Last Menstrual Period Date Ultra Sound Weeks Gestation 0 Eighteen To Twenty Week Matt Update Ultra Sound Date Fundal Height At Umbil Quickening Date Ultra Sound Latest Weeks Gestation Final Matt Confirmed By Final Matt Confirmed Date Final Matt Date Ultra Sound Latest Days Gestation 0 0 Menstrual History Last Menstrual Date Menses Monthly On Bcp Conception Prior Menses Frequency Hcg Plus Date Menarche Onset Age Delivery Information Delivery Date Delivery Type Labor Anesthesia Weeks Gestation Incision Type Labor Labor Length Hrs Delivered By Post Complications Tubal Sterilization Discharge Date Comments 8 Discharge Information Feeding Method Contraceptive Method Maternal HG B and HCT Levels Ob Episode Information Episode Created Date Number of Fetuses Patient Bloodtype Patient rh Status Prepregnancy Weight lbs Domestic Partner Domestic Partner Phone Father Name Insulation Applicator Status 10/04/20 22 1 CLOSED Fetus Data First Name Last Name Admitted to NICU Weight (g) Sex Living Outcome Pediatric Complications Fetus ID Race Codes Race Delivery Type 2522.87 [id number] Full Term [id number] Vaginal Delivery Matt Calculation Initial Matt Date Initial Exam Date Initial Exam Provider Initial Ultrasound Date Last Menstrual Period Date Ultra Sound Weeks Gestation 0 Eighteen To Twenty Week Matt Update Ultra Sound Date Fundal Height At Umbil Quickening Date Ultra Sound Latest Weeks Gestation Final Matt Confirmed By Final Matt Confirmed Date Final Matt Date Ultra Sound Latest Days Gestation 0 0 Menstrual History Last Menstrual Date Menses Monthly On Bcp Conception Prior Menses Frequency Hcg Plus Date Menarche Onset Age Delivery Information Delivery Date Delivery Type Labor Anesthesia Weeks Gestation Incision Type Labor Labor Length Hrs Delivered By Post Complications Tubal Sterilization Discharge Date Comments 9 Discharge Information Feeding Method Contraceptive Method Maternal HG B and HCT Levels
--- OUTSIDE RECORDS SUMMARY | 2025-01-01 06:06 | XMS_ITS | Data Portability ---
Author Organization [place] 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 Name Role Phone CAMMY DIAZ Primary Care Provider Assessment Encounter Date Assessment Date Assessment LastModified by Organization Details LastModified Time 12/16/2015 12/16/2015 Onychodystrophy R1 Chronic and reoccuring onychomycosis R1 abalettie Not available 12/16/2015 11:22:16 05/18/2016 05/18/2016 Onychodystrophy R1 Chronic and reoccuring onychomycosis R1 [email or web address] Not available 05/23/2016 17:21:43 09/28/2016 09/28/2016 Onychodystrophy R1 Chronic and reoccuring onychomycosis R1 resolved abalettie Not available 10/03/2016 10:53:45 Plan of Treatment Reminders Order Date Submit Date Provider Last Modified By Organization Details Last Modified Time Details Appointments None recorded. Lab None recorded. Referral None recorded. Procedures None recorded. Surgeries None recorded. Imaging None recorded. Medication Orders econazole nitrate 1 % topical cream 2015 016 abalett [id number], [address], [place], [place], [id number], 6 11:22:16 Patient TargetsNo targets recorded. Patient Instructions Encounter Date Encounter Id Patient Instructions Last Modified By Organization Details Last Modified Time 12/16/2015 [id number] toenail fungus: care instructions abalettie Not available 12/16/2015 11:22:16 written handouts discussed and dispensed.see below abalettie Not available 12/16/2015 11:22:16 I discussed nail fungus with the patient and possible treatment options which are: topical antifungal, oral antifungal, a combo, nail avulsion with topical antifungal, permanant removal of the nail and the least invasive or painful of Cutera laser treatment. The patient states they would {{prefer* conside r}} {{to do nothing at this time to use topical antifungals to use oral antifungals to use orals and topicals* to get laser nail treatment to get the nail permanatly removed to get the nail temporarily removed}}. RX {{Lamasil after serum labs are done, we will call in the RX. Rx econazole too# refused at this time Lamasil after serum labs are done and the nails sample for PAS returns positive, we will call in the RX Econazole Form jesús 3 Clotrimazole Ec onzole to plan for laser and a nail sample was obtained for PAS}}. Discussed virulence of nail fungus and need for life long prophylaxis of nail fungus with a topical antifungal OTC cream weekly and spraying shoes daily with an antifungal spray when removed from the feet. Answered patient's questions and educational handouts dispensed. Discussed the patient's choice of oral antifungals, Lamasil. Discussed potential of liver complications; elevated enzymes or complete liver failure. Nail bx is recommended, in fact some insurances require it to fill the Rx of Lamasil. Pt acknowledges verbally. Pre Lamasil LFT's ordered. Discussed the importance of follow up 6 wks repeat labs, I will call with any abnormalities. Discussed improvment with Lamasil will be slow, just as fast as the nail grows. The Lamasil is circulating for the duration of the oral compsumption of the pill, once the prescription is run out the medication stays in the skin structures for 6-9 months without effecting the liver. Pt was instructed to call with any side effects such as nausea or yellow discoloration of skin. Answered all patient's questions. Photos of nails taken. FU 6 mos to check. 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 I advised using a topical antifungal cream, such as OTC Lotrimin on his toes and nails once a week. It is advisable to spray the shoes daily after wearing with Tinactin antifungal spray to cut down colonization. It is widely believed that the fungus never actually goes away but the nail or skin does look clearer. It is likely to recurr at 70%. Answered patient's questions to their satisifaction. Educational handouts discussed and dispensed. FU prn abalettie Not available 09/28/2016 18:19:33 Reason for Referral None Reported. Results Created Date Observation Date Name Description Value Unit Range Abnormal Flag Note LastModifiedBy Organization Detail LastModifiedTime 12/25/19 16 12/26/2015 hepat ic funct ion panel , serum protein, total 6.9 g/dL 6.1-8. 1 normal Not Available [facility] [address], [address], 12/26/2015 07:58:51 12/25/19 16 12/26/2015 hepat ic funct ion panel , serum albumin 4.1 g/dL 3.6-5. 1 normal Not Available [facility] [address], [address], 12/26/2015 07:58:51 12/25/19 16 12/26/2015 hepat ic funct ion panel , serum globulin 2.8 g/dL_ (calc ) 1.9-3. 7 normal Not Available [facility] [address], [address], 12/26/2015 07:58:51 12/25/19 16 12/26/2015 hepat ic funct ion panel , serum albumin/glob ulin ratio 1.5 (calc ) 1.0-2. 5 normal Not Available [facility] [address], [address], 12/26/2015 07:58:51 12/25/19 16 12/26/2015 hepat ic funct ion panel , serum bilirubin, total 0.5 mg/dL 0.2-1. 2 normal Not Available [address], [address], 12/26/2015 07:58:51 12/25/19 16 12/26/2015 hepat ic funct ion panel , serum bilirubin, direct 0.1 mg/dL < or = 0.2 normal Not Available [address], [address], 12/26/2015 07:58:51 12/25/19 16 12/26/2015 hepat ic funct ion panel , serum bilirubin, indirect 0.4 mg/dL _(elfego c) 0.2-1. 2 normal Not Available [address], [address], 12/26/2015 07:58:51 12/25/19 16 12/26/2015 hepat ic funct ion panel , serum alkaline phosphatase 94 U/L 33-115 normal Not Available [address], [address], 12/26/2015 07:58:51 12/25/19 16 12/26/2015 hepat ic funct ion panel , serum AST 15 U/L 10-30 normal Not Available [address], [address], 12/26/2015 07:58:51 12/25/19 16 12/26/2015 hepat ic funct ion panel , serum ALT 18 U/L 6-29 normal Not Available [address], [address], 12/26/2015 07:58:51 04/22/20 16 04/23/2016 hepat ic funct ion panel , serum protein, total 6.8 g/dL 6.1-8. 1 normal Not Available [address] [address] [place], [address], 04/23/2016 05:43:34 04/22/20 16 04/23/2016 hepat ic funct ion panel , serum albumin 4.0 g/dL 3.6-5. 1 normal Not Available [address], [address], 04/23/2016 05:43:34 04/22/20 16 04/23/2016 hepat ic funct ion panel , serum globulin 2.8 g/dL_ (calc ) 1.9-3. 7 normal Not Available [address], [address], 04/23/2016 05:43:34 04/22/20 16 04/23/2016 hepat ic funct ion panel , serum albumin/glob ulin ratio 1.4 (calc ) 1.0-2. 5 normal Not Available [address], [address], 04/23/2016 05:43:34 04/22/20 16 04/23/2016 hepat ic funct ion panel , serum bilirubin, total 0.4 mg/dL 0.2-1. 2 normal Not Available [address], [address], 04/23/2016 05:43:34 04/22/20 16 04/23/2016 hepat ic funct ion panel , serum bilirubin, direct 0.1 mg/dL < or = 0.2 normal Not Available [address], [address], 04/23/2016 05:43:34 04/22/20 16 04/23/2016 hepat ic funct ion panel , serum bilirubin, indirect 0.3 mg/dL _(elfego c) 0.2-1. 2 normal Not Available [address], [address], 04/23/2016 05:43:34 04/22/20 16 04/23/2016 hepat ic funct ion panel , serum alkaline phosphatase 91 U/L 33-115 normal Not Available [facility] [employer] [address] [address] [place], [address], 04/23/2016 05:43:34 04/22/20 16 04/23/2016 hepat ic funct ion panel , serum AST 15 U/L 10-30 normal Not Available [address] [address] [place], [address], 04/23/2016 05:43:34 04/22/20 16 04/23/2016 hepat ic funct ion panel , serum ALT 19 U/L 6-29 normal Not Available [address], [address], 04/23/2016 05:43:34 04/22/20 16 04/23/2016 hepat ic funct ion panel , serum comment We recei monty your handw ritte n test order and perfo rmed the AMA defin ed Hepat ic Funct ion Panel . If this is not what you inten ded to order , pleas e conta ct your local clien t servi ce repre senta tive immed iatel y so that we may adjus t our magali ng appro jacinto miller. You may also inqui re about alter nativ e or addit ional testi ng. Not Available [address], [address], 04/23/2016 05:43:34 Result Notes None recorded. Problems Name Problem SNOMED Code Status Onset Date Resolution Date Notes Provider Name and Address Organization Details Recorded Time Onychomycosis due to dermatophyte 843277770 Active Colleen guzman [facility] 6 17:21:56 Dystrophia unguium 96797761 Active Colleen guzman [facility] 17:21:56 Problem Notes None recorded. Procedures Surgical History Date Name Laterality Status Provider Name and Address Organization Details Recorded Time 6 68812 Est. 20-29 min completed [facility] 10/03/2016 10:53:49 6 90416 Est. 20-29 min completed [facility] 05/23/2016 17:21:41 6 70297-- LEAF STICKER H&P Exam 30-44 minutes completed [facility] 12/16/2015 11:08:52 Imaging Results None recorded. Procedure Notes None recorded. Medical Equipment None Reported. Allergies Allergen ID Allergen Name Allergen Category Reaction Reaction Severity Criticality Documentation Date Start Date Code Code System Note Provider Name and Address Organization Details Recorded Time 57676 sulfur medicatio n other rash moderate moderate Not available 12/16/2015 20098 RxNorm Not Available Not Available Not Available Medications Name Sig Start Date Stop Date Status Note LastModified by Organization Details LastModified Time Lamisil 250 mg tablet Take 1 tablet(s) every day by oral route. active Not Available Not Available No t Available econazole nitrate 1 % topical cream Apply to the toenail by topical route 2 times per day active Not Available Not Available No t Available Vitals Date Recorded Body weight Body height Body mass index (BMI) Provider Name and Address Organization Details Last Updated DateTime 12/16/2015 67000.3977 g 160.02 cm 37.2 kg/m2 [facility] 12/16/2015 10:37:37 Date Recorded Body height Provider Name an d Address Organization Details Last Updated DateTime 09/28/2016 160.02 cm [facility] 09/28/2016 18:06:53 Social History Question Answer Notes LastModified by Organizat ion Details LastModified Time Tobacco Smoking Status Never Smoker Florencio Diaz [facility] 12/16/2015 10:33:56 What Is Your Level Of Alcohol Consumption? 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 No Information not available 12/16/2015 What Types Of Sporting Activities Do You Participate In? None Information not available 12/16/2015 Sex: Unknown Functional Status Question Answer Note LastModified by Organizat ion Details LastModified Time What is your exercise level? Occasional Information not available 12/16/2015 Mental Status None recorded. Family History Relationship Description Onset Age of this Age Resolved Age Notes LastModified by Organization Details LastModified Time Paternal Grandfather Diabetes mellitus [email or web address] Not available 11/23 10:48:08 Maternal Grandmother Malignant neoplastic disease 75 [email or web address] Not available 11/23 10:48:08 Mother Arthritis 48 [email or web address] Not avail able 12/16/2015 10:48:08 Medical History Condition Response HIV or AIDS N Coronary Artery Disease N Gout N High Blood Pressure N Depression N Anxiety Disorder N Urinary Tract Infections N Arthritis N Ear Problems N Cancer N Eye Problems N Stroke N Stomach Problems N Rheumatoid Arthritis N Rash N Kidney Disease N Tuberculosis or TB N Heart Problems N Phlebitis or Venous Blood Clot N Migraines N Bleeding Disorder N Abuse of Alcohol or Drugs N Peripheral Vascular Disease N Sinus Conditions N Broken Bone N Thyroid Disorder N Hepatitis N Seizure Disorder N Menopause N Lung Condition N Pacemaker N Sciatica N High Cholesterol N Liver Disease N Ulcers on Legs or Feet N Clot in Lung or Pulmonary Embolism N Anemia N Back Pain N Neurologic Disease N Heart Attack ([place]) N Diabetes N Back injury N Dementia N Heart Disease N Osteoporosis N Gynecological HistoryNo gynecological history recorded. Obstetrics History GPAL:G 0 P 0 0 0 0 Past Encounters Encounter ID Performer Location Encounter Start Date Encounter Closed Date Diagnosis/Indication Diagnosis SNOMED-CT Code Diagnosis ICD10 Code Diagnosis Note [id number] Colleen [facility] [address] [place] [address] 12/16/2015 10:27:32 12/16/2015 10:59:02 Onychomycosis due to dermatophyte 020228511 B35.1 Dystrophia unguium 49623 009 L60.3 [id number] [facility] [address] [place] [address] 05/18/2016 18:05:09 05/18/2016 18:13:00 Onychomycosis due to dermatophyte 420759275 B35.1 Dystrophia unguium 04323 009 L60.3 [id number] Colleen PAIGE [address] [place] [address] 09/28/2016 18:06:16 09/28/2016 18:16:41 Onychomycosis due to dermatophyte 369747185 B35.1 Dystrophia unguium 91722 009 L60.3 Health Concerns Section Related Observation LastModified by Organization Detai ls LastModified Time None Recorded Concern Status LastModified by Organization Details LastModified Time None Recorded Advance Directives Directive None Recorded Payers Encounter Date Sequence Insurance Name Policy Number Policy Angel Covered Member ID Angel Member ID Guarantor Name 12/16/2015 1 [employer] [id number] Pham R Everright [id number] Pham Everright 05/18/2016 1 [employer] [id number] Pham R Everright [id number] Pham Everright 09/28/2016 1 [employer] [id number] Pham R Everright [id number] Pham Everright Notes Date Note Type Note Provider Name and Address Organization Details Recorded Time 12/16/2015 text/html Nails--Reported bypatient.Location: toenails right 1, , , , Nature:occasional sharp or shooting pain Severity:mild Duration:3 years; sandy bumped her toe a long time ago and ever since then hasn't been the same. Timing:gradually worse as time goes on Onset:all shoes apply uncomfortable pressure Alleviating Factors:has tried topical antifungal Aggravating Factors:precipitate d by wearing shoes; pressure; walking Course:was better then got worse again Previous Treatment:self trimmingNotes:Malik il pill for a year that she got from her PCP, topicals OTC didn't work, and presription grade topicals from previous apprentice electrician gave her topical to thin the nail and an antifungal but the thinner made it hurt so she stopped using, they are now trying oregano oil not sure if its helping. [facility] 12/16/2015 11:22:17 05/18/2016 text/html Nails--Reported bypatient.Location: toenails right 1, , , , Nature:occasional sharp or shooting pain Severity:mild Duration:several years; 3 years; dauther bumped her toe a long time ago and ever since then hasn't been the same. Alleviating Factors:relief with treatment; has been using oral antifungal Aggravating Factors:pressure Course:getting better after each treatment Previous Treatment:self trimming; topical Rx antifungal; using tea tree oil Colleen guzman [facility] 05/23/2016 17:22:04 09/28/2016 text/html Nails--Reported bypatient.Location: toenails right 1, , , , Nature:occasional sharp or shooting pain Severity:mild Duration:several years; 3.5 years; daughter bumped her toe a long time ago and ever since then hasn't been the same. Alleviating Factors:relief with treatment; has been using topical antifungal Aggravating Factors:pressure Course:getting better after each treatment Previous Treatment:self trimming; topical Rx antifungal (Econazole cream); using tea tree oil Colleen guzman [facility] 10/03/2016 10:54:46 OBGyn Episode No OBEpisode recorded.
--- OUTSIDE RECORDS SUMMARY | 2025-01-01 06:06 | XMS_ITS | Clinical Summary ---
[facility] Address [address] [place] [address] Care Team Providers Care Aoc Plans Intelligence Officer Chief Name Role Phone Demian Nolne MD Primary Care Provider [phone] Allergies Active Allergy Reactions Criticality Noted Date [...] SARS-CoV-2 Monovalent Vaccination (12+ Y RS) 01/28/2021,12/29/2020 Surgical History Surgery Date Site/Laterality Comments OTHER SURGICAL HISTORY 2008 : Medical History Medical History Date Comments Hx Other Medical ; Outc ome: 5lb(s) 6 oz Female Family History Medical History Relation Name Comments Breast cancer Cousin Maternal Ovarian cancer Maternal Grandmother Cance r, ovarian; Breast cancer Mother's Sister Cancer, sienna ast; Deep vein thrombosis Neg Hx Uterine cancer Neg Hx Relation Name Status Comments Cousin Maternal Alive Maternal Grandmother Mother's Sister Alive Social History Tobacco Use Types Packs/Day Years Used Date Smoking Tobacco: Never Smokeless Tobacco: Never Alcohol Use Standard Drinks/Week Comments Yes 0 (1 standard drink = 0.6 oz pur e alcohol) Comments No Sex and Gender Information Value Date Recorded Sex Assigned at Not on file 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 Gender Identity Not on file Sexual Orientation Not on file Obstetrics History Para Term AB IAB SAB Ectopic Multiple Livin g Live Births 1 1 1 Date Outcome GA Total Labor Labor/2nd/3rd Weight Sex Type Anes PTL Ana A1 A5 Name Clin F Vag-S pont Living Last Filed Vital Signs Vital Sign Reading [...] 05/23/2021 1:39 PM CDT Plan of Treatment Health Maintenance Due Date Last Done Comments Colon Cancer Screening-Colonoscopy 1975 Depression Screening 1975 Hepatitis C Screening 1975 DTaP/Tdap/Td Vaccine (1 - Tdap) 1987 Hepatitis B Screening 1994 Breast Cancer Screening-Mammogram 05/23/2022 05/23/2021, 01/02/2019, 03/29/2015 Cervical Cancer Screening 05/23/2022 05/23/2021 Regular Well Visit/Exam 18-64 05/23/2022, 01/02/2019, 10/17/2017 Covid-19 Vaccine (2023-2 5 season) 2024 01/28/2021, 12/29/2020 Influenza Vaccine (#1) 2024 09/08/2020 Pneumococcal vaccine <65 Aged Out No longer eligible based on patient's age to complete this topic Procedures Procedure Name Priority Date/Time Associated Diagnosis [...] CDT 05/26/2021 1:14 PM CDT Narrative PATHOLOGY [facility] - 05/29/2021 11:49 AM CDT [facility] results best viewed via link to PDF [place] [facility] [address] Tele: Rachel Oliver MD - Ground Crew Lines Person CYTOLOGY REPORT Note to Patients: This report [...] the details. Patient Name: PHAM MCKEON Address: [address] [place] [address] Gender: F : 1975 (Age: 45) Service: Location: N : [id number] Hospital #: [id number] Patient Type: [facility] SPECIMEN Taken: 05/23/2021 Reported: 05/29/2021 Physician(s): Sherri Rubio M.D. FINAL DIAGNOSIS: Specimen Type: - ThinPrep Pap and HPV w/ reflex Genotyping Statement of Specimen Adequacy: Source: Cervical/Endocervical - Satisfactory for interpretation - Endocervical /Transformation Zone component present - Case screened using computer assisted imaging technology General Categorization: - Negative for intraepithelial lesion or malignancy Interpretation: - Blood present t/05/29/2021 11:49 MAKSIM Bazan (ASCP) Report Reviewed and [...] LAB CYTOLOGY ORDERABLES Fin al Result PATHOLOGY [facility] Laboratory Receiving [address] [place] [address] from Last 3 Months or Most Recently Relevant to Health Maintenance Insurance [facility] Care Teams Aoc Plans Intelligence Officer Chief Relationship Specialty Start Date End Date Demian Nolen MD PCP - General Family Medicine 10/17/17
[2025-01-01 06:21] VITALS: BP 128/94; PULSE 71; RESP 15; TEMP 36.6; O2SAT 99
[2025-01-01] MEDS: LACTATED RINGERS 1,000 ML 30 ML IV CONT (06:40)
--- NOTE | 2025-01-01 06:59 | WPDHPUPDATE1 ---
History and Physical Update Update Date/Time: 01/01/25 06:59 Patient seen and examined in pre-operative holding area. No interval change in medical history or symptoms. Patient recalls previous discussion of benefits and alternatives to procedure. Continues to desire to proceed with left endoscopic possible open carpal tunnel release and left cubital tunnel release and left middle finger steroid injection . Reviewed procedure, post-op expectations and risks including but not limited to bleeding, infection, injury to tendon/nerve/vessel, decreased hand function, stiffness, RSD, no change or worsening of symptoms. I discussed the possible use of assistants and their participation in the case. Patient stated understanding and signed the consent form wishing to proceed.
--- NOTE | 2025-01-01 07:00 | P.OP_ITS ---
Procedure Note - Detailed Date of Procedure 01/01/25 Pre-op Diagnosis Left Carpal and Cubital Tunnel Syndrome, Left middle trigger finger Post-op Diagnosis Same Procedure Performed left ectr, left CuTR, left middle finger steroid injeciton Surgeon Sachin Maria MD Anesthesia MAC Description of Procedure INFORMED CONSENT: The patient was seen and examined and marked in the pre-op area.? The patient signed the consent form. PROCEDURE IN DETAIL:The patient taken back to OR on the stretcher in supine pos ition. Time out performed with anesthesia, surgeon and staff agreeing on patient's name site and surgery to be performed SCDs were placed on the lower extremities and inflated. A tourniquet was placed on {left} upper extremity and antibiotics given IV After anesthesia administered sedation I injected {10}cc 1%lido with epi and 0.5% marcaine plain at the operative sites The?{left upper extremity}?was prepped and draped in sterile fashion the??{left upper extremity} was? exsanguinated with Esmarch bandage and tourniquet inflated to 250mmHg I made a transverse incision in the {left} volar distal wrist crease through skin and dermis with 15 blade scalpel.? Littler scissors spread down to antebrachial fascia. A small incision was made in antebrachial fascia allowing access to Carpal tunnel. I proceeded with sequential dilation staying in line with the ring finger and hugging the hook of the hamate.? I then used the synovial elevator to free any adhesions from the underside of the transverse carpal ligament. Next I was able to insert the Microaire endoscopic carpal tunnel device with direct visualization of the transverse fibers on the monitor and proceeded with complete segmental retrograde release of the ligament in its entirety.? I irrigated with normal saline and closed with 4-0 monocryl for dermis and subcuticular closure. I next proceeded with making a longitudinal incision between two heads for flexor carpi ulnaris at end of {left} cubital tunnel with 15 blade scalpel.? Littler scissors were used to spread down to FCU fascia.? An incision was made in FCU fascia and ulnar nerve identified exiting cubital tunnel.? I proceeded with complete retrograde release of the cubital tunnel including 7cm proximal for the intermuscular septum.? The nerve appeared healthy with visible vaso nervorum.? There was no subluxation on full elbow range of motion. ? I irrigated with normal saline and closure with 4-0 monocryl for dermis and subcuticular. Next, I injected 0.3cc 1%lidocaine plain and 0.7cc Betamethasone 6mg/ml into the left middle finger flexor sheath around a1 ricco. The incisions were covered with Dermabond then 4x4s, ancelmo, and a posterior elbow and volar wrist splint for patient safety, security and comfort and secured with yeni bandages after the tourniquet was let down noting the hand was warm and well perfused.? Patient awaken from anesthesia and transferred to recovery in stable condition Complications - none EBL- 1cc Disposition - home in stable conditions taylor sandoval pa-c was essential for positioining, retraction, closure and dressing placement [facility] Billing Surgery - Charge Forward: Surgery Billing ([id number] and [id number] and [id number],59 for taylor)
--- NOTE | 2025-01-01 07:23 | P.PNAN_ITS ---
Anes - Initial Pre Proc Eval Procedure: Operation Date: 01/01/25 07:30 Proposed Procedures p Left Endoscopic Carpal Tunnel Release, Possible Open Carpal Tunnel Release - Sachin Maria MD s Left Cubital Tunnel Release; Left Middle Finger Flexor Tendon Sheath Steroid Injection - Sachin Maria MD Date/Time: 01/01/25 07:23 Surgeon: Sachin Maria MD Pre Op Diagnosis: Left Carpal and Cubital Tunnel Syndrome, Left Patient Data Age: 49 Gender: F Height: 1.6 m Weight: 83.55 kg Last Vital Signs Temp 36.6 C 01/01/25 06:21 Pulse 71 01/01/25 06:21 Resp 15 01/01/25 06:21 BP 128/94 H 01/01/25 06:21 Pulse Ox 99 01/01/25 06:21 O2 Del Method Room Air 01/01/25 06:21 Allergies Allergy/AdvReac Type Severity Reaction Status Date / Time Sulfa (Sulfonamide Allergy Unknown Fever- Verified 01/01/25 06:18 Antibiotics) hives Home Medications ?Medication ?Instructions ?Recorded ?Confirmed ?Type pantoprazole 40 mg tablet,delayed 40 mg PO QAM 06/17/24 01/01/25 History release tramadol 50 mg tablet 50 mg PO Q6H PRN pain #12 tabs 01/01/25 Rx Patient hx anesthesia problems: none Family hx anesthesia problems: none Results Review: All pre-operative results and documents have been reviewed as part of the pre- operative evaluation. [facility] Past Medical History Medical History Numbness and tingling of left hand Adult BMI 38.0-38.9 kg/sq m Surgical History Surgical History H/O gastric sleeve (~03/2024) Family History Family History Father Hypertension Grandparent Cerebrovascular accident Family history of malignant neoplasm of ovary Diabetes mellitus Other Family history of arthritis Family history of malignant neoplasm Social History Social History Social History: Caffeine-none Smoking status: Never smoker Second hand tobacco smoke exposure: No Alcohol intake: former Substance use: never Substance use type: does not use Do You Feel Safe in your Home?: Yes Lack of Transportation: No Lack of Food: Never True Current Housing: I Have Housing Concerned About Future Housing: No Difficulty Paying Gas/Electric Bills: No Difficulty Paying for Meds: No Currently Unemployed: No Education: High School Diploma/GED Difficulty w/ Childcare or Family Care: No Living arrangements: with family Spiritual care concerns: No Anes - Eval Final PreProcedure Day of Procedure 01/01/25 07:23 Patient weight: obese Heart: regular rate and rhythm Lungs: clear to auscultation Airway: Mallampati scale class II Neurological: alert and oriented Last oral intake: >/= 8 hours ASA classification: II Emergent: no Anesthetic plan: proceed Anesthesia type and monitoring: general GIVS and standard monitoring Results Review: All pre-operative results and documents have been reviewed as part of the pre- operative evaluation. Informed Consent: The patient's anesthetic plan and its attendant risks and benefits were discussed with the patient/family/POA. Questions were solicited and answers provided to the satisfaction of the patient/family/POA.
[2025-01-01] MEDS: ceFAZolin SODIUM 2 GM/20 ML SW SYRINGE IV PUSH (07:28)
[2025-01-01] MEDS: BUPivacaine HCL 0.5% 10 ML AMP 4 ML INFILTRATE (07:32)
[2025-01-01] MEDS: LIDO 1%/EPINEPHRINE 1:100,000 10 ML VIAL 4 ML INFILTRATE (07:32)
[2025-01-01] MEDS: BETAMETHASONE SODIUM PHOSPHATE PF INJ 6 MG/ML VIAL 4.2 MG INFILTRATE (07:33)
[2025-01-01] MEDS: LIDOCAINE 1% LOCAL INJ 10 ML VIAL INFILTRATE (07:33)
[2025-01-01 08:07] VITALS: BP 128/68; PULSE 74; RESP 14; O2SAT 97
--- NOTE | 2025-01-01 08:14 | WPDANESPN ---
Anes - Prog Note Post-Op Date/Time: 01/01/25 08:14 Cardiovascular status: normal Respiratory status: normal Airway patency: baseline Mental status: baseline Post-Op hydration status: normal Vital Signs: Last Vital Signs Temp 36.6 C 01/01/25 06:21 Pulse 74 01/01/25 08:07 Resp 14 01/01/25 08:07 BP 128/68 01/01/25 08:07 Pulse Ox 97 01/01/25 08:07 O2 Del Method Room Air 01/01/25 08:07 Pain Score (VAS): 0 Patient Feedback: Patient satisfied with anesthetic care.
[2025-01-01 08:17] VITALS: BP 130/77; PULSE 71; RESP 14; O2SAT 97
[2025-01-01 08:27] VITALS: BP 122/91; PULSE 85; RESP 15; O2SAT 100
[2025-01-01 08:37] VITALS: BP 130/77; PULSE 64; RESP 15; O2SAT 100
== END 2025-01-01 09:00 | disposition home or self-care (01) ==
PROVIDERS: PCP Family Medicine; Visit Provider Plastic Surgery
PROC: 01N54ZZ Release Median Nerve, Percutaneous Endoscopic Approach (ICD-10-PCS; CPT 29848; principal; 2025-01-01 07:30)
PROC: (CPT 64718; 2025-01-01 07:30)
DX: G56.22 Lesion of ulnar nerve, left upper limb (principal); G56.02 Carpal tunnel syndrome, left upper limb; M65.332 Trigger finger, left middle finger
CPT/HCPCS: 20550; 29848; 64718

== ENCOUNTER 2025-06-26 01:44 | Day surgery (SDC) | payer OTHER, SELFPAY ==
[2025-06-16 09:59] VITALS: BMI 32.0
--- OUTSIDE RECORDS SUMMARY | 2025-06-26 01:48 | XMS_ITS | Clinical Summary ---
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 results best viewed via link to PDF [place] [facility] [address] Tele: Rachel Oliver MD - Local Company [employer] Truck Driver CYTOLOGY REPORT Note to Patients: This report [...] the details. Patient Name: PHAM MCKEON Address: [address] [place] [address] Gender: F : 1975 (Age: 45) Service: Location: N : [id number] Hospital #: [id number] [place] [facility] [place]: 05/23/2021 Reported: 05/29/2021 Physician(s): Sherri [...] LAB CYTOLOGY ORDERABLES Fin al Result PATHOLOGY [facility] Laboratory Receiving [address] [place] [address] from Last 3 Months or Most Recently Relevant to Health Maintenance [facility] Care Teams Retail Clerk Relationship Specialty Start Date End Date Demian Nolen MD PCP - General Family Medicine 10/17/17
[2025-06-26] MEDS: LACTATED RINGERS 1,000 ML 150 ML IV CONT (09:41)
[2025-06-26 09:42] VITALS: BP 121/81; PULSE 83; RESP 16; TEMP 36.6; O2SAT 98
--- NOTE | 2025-06-26 09:59 | P.PNAN_ITS ---
Anes - Initial Pre Proc Eval Procedure: Operation Date: 06/26/25 10:30 Proposed Procedures p Screening Colonoscopy - Josh Jim MD Date/Time: 06/26/25 09:59 Surgeon: Josh Jim MD Pre Op Diagnosis: sceening,positive cologaurd Patient Data Age: 49 Gender: F Height: 1.6 m Weight: 84.1 kg Last Vital Signs Temp 36.6 C 06/26/25 09:42 Pulse 83 06/26/25 09:42 Resp 16 06/26/25 09:42 BP 121/81 06/26/25 09:42 Pulse Ox 98 06/26/25 09:42 O2 Del Method Room Air 06/26/25 09:42 Allergies Allergy/AdvReac Type Severity Reaction Status Date / Time Sulfa (Sulfonamide Allergy Unknown Fever- Verified 06/26/25 09:30 Antibiotics) hives Home Medications ?Medication ?Instructions ?Recorded ?Confirmed ?Type pantoprazole 40 mg tablet,delayed 40 mg PO QAM #90 tab s 03/05/25 06/26/25 Rx release Patient hx anesthesia problems: none Family hx anesthesia problems: none Results Review: All pre-operative results and documents have been reviewed as part of the pre- operative evaluation. [facility] Past Medical History Medical History (Updated 06/25/25 @ 15:58 by Agustín Carpenter DO) Gastroesophageal reflux disease without esophagitis Numbness and tingling of left hand Adult BMI 38.0-38.9 kg/sq m Surgical History Surgical History H/O gastric sleeve (~03/2024) Family History Family History Father Hypertension Grandparent Cerebrovascular accident Family history of malignant neoplasm of ovary Diabetes mellitus Other Family history of arthritis Family history of malignant neoplasm Social History Social History Social History: Caffeine-none Smoking status: Never smoker Second hand tobacco smoke exposure: No Alcohol intake: never Substance use: never Substance use type: does not use Do You Feel Safe in your Home?: Yes Lack of Transportation: No Lack of Food: Never True Current Housing: I Have Housing Concerned About Future Housing: No Difficulty Paying Gas/Electric Bills: No Difficulty Paying for Meds: No Currently Unemployed: No Education: High School Diploma/GED Difficulty w/ Childcare or Family Care: No Living arrangements: with family Spiritual care concerns: No Anes - Eval Final PreProcedure Day of Procedure 06/26/25 09:59 Patient weight: obese Heart: regular rate and rhythm Lungs: clear to auscultation Airway: Mallampati scale class II Neurological: alert and oriented Last oral intake: >/= 8 hours ASA classification: II Emergent: no Anesthetic plan: proceed Anesthesia type and monitoring: general GIVS and standard monitoring Results Review: All pre-operative results and documents have been reviewed as part of the pre- operative evaluation. Informed Consent: The patient's anesthetic plan and its attendant risks and benefits were discussed with the patient/family/POA. Questions were solicited and answers provided to the satisfaction of the patient/family/POA.
--- NOTE | 2025-06-26 10:16 | P.HP_ITS ---
History of Present Illness History of Present Illness Consent: Risks, benefits, and alternatives have been discussed and questions answered. Patient agrees to proceed with procedure. Chief complaint: sceening,positive cologaurd Narrative: Pham Mckeon is a 49 year old female here for first colonoscopy, + cologuard Review of Systems Review of Systems: All systems reviewed & are unremarkable except as noted in HPI and below PMFSH Past Medical History Medical History (Updated 06/25/25 @ 15:58 by Agustín Carpenter, ) Gastroesophageal reflux disease without esophagitis Numbness and tingling of left hand Adult BMI 38.0-38.9 kg/sq m Surgical History Surgical History H/O gastric sleeve (~03/2024) Family History Family History Father Hypertension Grandparent Cerebrovascular accident Family history of malignant neoplasm of ovary Diabetes mellitus Other Family history of arthritis Family history of malignant neoplasm Social History Social History Social History: Caffeine-none Smoking status: Never smoker Second hand tobacco smoke exposure: No Alcohol intake: never Substance use: never Substance use type: does not use Do You Feel Safe in your Home?: Yes Lack of Transportation: No Lack of Food: Never True Current Housing: I Have Housing Concerned About Future Housing: No Difficulty Paying Gas/Electric Bills: No Difficulty Paying for Meds: No Currently Unemployed: No Education: High School Diploma/GED Difficulty w/ Childcare or Family Care: No Living arrangements: with family Spiritual care concerns: No Meds Home Medications and Allergies Home Medications ?Medication ?Instructions ?Recorded ?Confirmed ?Type pantoprazole 40 mg tablet,delayed 40 mg PO QAM #90 tab s 03/05/25 06/26/25 Rx release Allergies Allergy/AdvReac Type Severity Reaction Status Date / Time Sulfa (Sulfonamide Allergy Unknown Fever- Verified 06/26/25 09:30 Antibiotics) hives Vital Signs Vital Signs - 24 hr 06/26/25 09:42 Temperature 97.8 F Pulse Rate 83 Respiratory Rate 16 Blood Pressure 121/81 Pulse Oximetry 98 Oxygen Delivery Room Air Exam Const: General: comfortable and no acute distress HENMT: Face/Nose/Sinus: Normal nares present Eyes: General: appearance normal, both eyes and all related structures Neck: Neck: no JVD Resp: Auscultation: clear to auscultation bilaterally Cardio: Rate: regular rate Rhythm: regular rhythm GI: Inspection: non-distended GI Palp: Yes Soft to palpation Skin: General skin exam: normal color Neuro: Speech: normal speech Extrem: General: normal to inspection Psych: Mental Status: mental status grossly normal Assessment and Plan Assessment and plan (1) Positive colorectal cancer screening using Cologuard test: Code(s): R19.5 - Other fecal abnormalities Status: Acute Assessment and Plan: colonoscopy
--- NOTE | 2025-06-26 10:30 | S_PTH ---
PATIENT: Pham Mckeon LOC: [facility]#:[id number] AGE/SX: 49/F ROOM: RE06/26/[address]: Josh Jim MD : 1975 BED: DIS: 06/26/2025 SPEC #: [id number] RECD: 06/26/25 11:24 STATUS: JORDAN RELj #: [id number] MEET: 06/26/25 10:[address]: Josh Jim DEPT: [facility] Surgical RECD BY: Cathy Escalante ENTERED: 06/26/25 11:24 SP TYPE: Surgical OTHR DR: Demian Nolen MD Tissues: A - Colon Polypectomy Procedures: Hematoxylin and Eosin Stain Gross and Microscopic Level 4
[2025-06-26 10:33] LABS: BEDSIDEPREGUCG Negative (Negative)
[2025-06-26 10:35] VITALS: BP 123/73; PULSE 81; RESP 23; O2SAT 100
[2025-06-26 10:45] VITALS: BP 118/78; PULSE 63; RESP 15; O2SAT 100
[2025-06-26 10:55] VITALS: BP 123/73; PULSE 81; RESP 23; O2SAT 100
== END 2025-06-26 11:08 | disposition home or self-care (01) ==
PROVIDERS: PCP Family Medicine; Referring Provider Physician Assistant Medical; Visit Provider Internal Medicine Gastroenterology
PROC: 0DJD8ZZ Inspection of Lower Intestinal Tract, Via Natural or Artificial Opening Endoscopic (ICD-10-PCS; CPT 45378; principal; 2025-06-26 10:30)
DX: Z12.11 Encounter for screening for malignant neoplasm of colon (principal); R19.5 Other fecal abnormalities; K63.5 Polyp of colon; Z98.84 Bariatric surgery status; E66.9 Obesity, unspecified; Z68.32 Body mass index [BMI] 32.0-32.9, adult
CPT/HCPCS: 45385; 88305; J2704; J7120

== ENCOUNTER 2025-07-03 17:48 | Observation (INO) | payer OTHER, SELFPAY ==
--- OUTSIDE RECORDS SUMMARY | 2025-07-03 17:50 | XMS_ITS | Clinical Summary ---
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 Patient Name: PHAM MCKEON Address: [address] [place] [address] Gender: F : 1975 (Age: 45) Service: Location: N : [id number] Hospital #: [id number] [place] [facility] [place]: 05/23/2021 Reported: 05/29/2021 Physician(s): Sherri [...] LAB CYTOLOGY ORDERABLES Fin al Result PATHOLOGY [facility] Laboratory Receiving [address] [place] [address] from Last 3 Months or Most Recently Relevant to Health Maintenance [facility] Care Teams Biomedical Equipment Support Specialist Relationship Specialty Start Date End Date Demian Nolen MD PCP - General Family Medicine 10/17/17
[2025-07-03 18:01] VITALS: BP 150/84; PULSE 100; RESP 16; TEMP 36.4; O2SAT 100
[2025-07-03 18:29] VITALS: O2SAT 94
[2025-07-03 18:31] VITALS: PULSE 93; RESP 20; O2SAT 97
--- NOTE | 2025-07-03 18:31 | ECG_ITS ---
Test Date: 2025-07-03 18:38:16 Measurements Intervals [place] Rate: 101 P: 56 AK: 157 QRS: 36 QRSD: 86 T: 57 QT: 352 QTc: 457 Interpretive Statements SINUS TACHYCARDIA POSSIBLE LEFT ATRIAL ENLARGEMENT [-0.1mV P-WAVE IN V1/V2] POSSIBLE RIGHT VENTRICULAR CONDUCTION DELAY [RSR (QR) IN V1/V2] ABNORMAL ECG No previous ECG available for comparison Electronically Signed On 07-04-2025 12:15:51 CDT by Doc Mendez M.D.
[2025-07-03] MEDS: ONDANSETRON INJ 4 MG/2 ML VIAL IV PUSH ×2 (18:39→22:32)
[2025-07-03 18:42] LABS: Hematocrit 36.3 % (37.0-47.0); Hemoglobin 12.6 g/dL (12.0-15.0); Immature Granulocyte Percent A 0.3 % (0-0.5); Lymphocytes Absolute Auto 2.87 K/mm3 (0.9-3.2); Mean Corpuscular HGB Conc 34.7 g/dl (32-36); Mean Corpuscular Hemoglobin 28.5 pg (26-34); Mean Corpuscular Volume 82.1 fl (80-100); Nucleated Red Blood Cells Absolute Auto 0.000 K/mm3 (0.0-0.012); Nucleated Red Blood Cells Perc 0.0 % (0.0-0.2); Platelet Count Result 231 k/mm3 (150-375); Red Blood Count 4.42 M/mm3 (4.2-5.4); White Blood Count 8.0 K/mm3 (4.5-10.0)
[2025-07-03 18:45] VITALS: PULSE 101; RESP 21; O2SAT 100
[2025-07-03 18:52] LABS: Alanine Aminotransferase 22 U/L (6-35); Albumin Level 3.8 g/dL (3.5-5.1); Alkaline Phosphatase 105 U/L (38-126); Anion Gap 9 mmol/L (4-12); Aspartate Amino Transferase 25 U/L (14-36); Bilirubin,Total 0.3 mg/dL (0.2-1.3); Blood Urea Nitrogen 19 mg/dL (7-17); Calcium 8.3 mg/dL (8.4-10.2); Carbon Dioxide 22 mmol/L (22-30); Chloride 104 mmol/L (98-107); Estimated CRCL calculation 86 ml/min; Estimated Glomerular Filt Rate > 60; Glucose 128 mg/dL (65-110); INR 1.0; Potassium 4.2 mmol/L (3.4-5.0); Prothrombin Time 13.3 Seconds (11.1-14.7); Sodium 135 mmol/L (137-145); Total Protein 6.7 g/dL (6.3-8.2)
[2025-07-03 18:53] LABS: Partial Thromboplastin Time 30.6 Seconds (22.3-36.8)
--- NOTE | 2025-07-03 19:21 | ED_ITS ---
HPI - General Adult General Chief complaint: GI Bleed Stated complaint: blood in stool Time Seen by Provider: 07/03/25 19:10 History of Present Illness HPI narrative: Patient is a 49-year-old female who presents emergency department this evening complaining of rectal bleeding. Patient had a colonoscopy performed on June [address] Porter removed the 12 mm call up and placed a clip. Patient states that she was doing fine since then, however, at 4:00 p.m. this afternoon she started have her left foot bleeding. Patient states that within the last hour that she has been in the emergency department she has had 6 episodes of bright red blood per rectum. Denies any abdominal pain, any additional symptoms or concerns. Related Data Allergies Allergy/AdvReac Type Severity Reaction Status Date / Time Sulfa (Sulfonamide Allergy Unknown Fever- Verified 07/03/25 18:03 Antibiotics) hives Review of Systems 2 Review of Systems: All systems are reviewed and are negative unless stated otherwise in the HPI. [facility] Past Medical History Medical History Gastroesophageal reflux disease without esophagitis Numbness and tingling of left hand Adult BMI 38.0-38.9 kg/sq m Surgical History Surgical History H/O gastric sleeve (~03/2024) Family History Family History Father Hypertension Grandparent Cerebrovascular accident Family history of malignant neoplasm of ovary Diabetes mellitus Other Family history of arthritis Family history of malignant neoplasm Social History Social History Social History: Caffeine-none Smoking status: Never smoker Second hand tobacco smoke exposure: No Alcohol intake: never Substance use: never Substance use type: does not use Do You Feel Safe in your Home?: Yes Lack of Transportation: No Lack of Food: Never True Current Housing: I Have Housing Concerned About Future Housing: No Difficulty Paying Gas/Electric Bills: No Difficulty Paying for Meds: No Currently Unemployed: No Education: High School Diploma/GED Difficulty w/ Childcare or Family Care: No Living arrangements: with family Spiritual care concerns: No Exam 2 Narrative: General: Alert, awake, afebrile, in no acute distress. HEENT: PERRL, no rhinorrhea, no post nasal drip, oropharynx clear. Neck: Trachea midline, no JVD, no lymphadenopathy. Cardiovascular: Tachycardic with regular rhythm, no murmurs, rubs or gallops, no peripheral edema. Respiratory: Clear to auscultation bilaterally, no tachypnea, no wheezing, no rhonchi, no rubs, no respiratory distress. Abdomen: Soft, nontender, nondistended, no rebound, no guarding, no peritoneal signs. Rectal: Exam performed with the Presence of female nurse deputy controller revealing good rectal tone, FOBT positive, very scant amount of medium brown colored stool mixed with a lot of bright red blood. Musculoskeletal: No joint swelling or deformity, normal muscle tone. Skin: No rashes or petechia, no signs of infection. Psychiatric: Alert and oriented, normal behavior and judgment for situation. Neurological: Alert and oriented to person, place, and time. Follows all commands. No focal deficits, speech is clear and fluent. Course Vital Signs Vital signs: Vital Signs Temperature 97.6 F 07/03/25 18:01 Pulse Rate 100 07/03/25 18:01 Respiratory Rate 16 07/03/25 18:01 Blood Pressure 150/84 H 07/03/25 18:01 Pulse Oximetry 100 07/03/25 18:01 Temperature 97.6 F 07/03/25 18:01 Pulse Rate 101 H 07/03/25 18:45 Respiratory Rate 21 H 07/03/25 18:45 Blood Pressure 150/84 H 07/03/25 18:01 Pulse Oximetry 100 07/03/25 18:45 Medical Decision Making [facility] Narrative Medical decision making narrative: The patient was evaluated by myself in the emergency department. History is obtained from alisa who is an independent historian and physical exam was performed. External medical records were reviewed at this time. IV was established and pertinent tests were ordered. Patient was administered 4 mg IV Zofran for nausea. EKG was obtained which revealed sinus tachycardia rate of 101 beats per minute, no evidence of acute ischemia. EKG was independently interpreted by me and is currently pending official cardiology read. Laboratory results obtained revealing no acute process. Stable hemoglobin of 12.6. Differential diagnosis considerations include upper versus lower GI bleed, acute blood loss anemia, dehydration, hemorrhoids, fissures. Comorbidities impacting this visit include recent colonoscopy with polypectomy and clip placement. I have evaluated and discussed social determinants of health with the patient that could potentially impact subsequent diagnosis and treatment plans. On repeat assessment of the patient, reevaluation revealed that the patient is doing well and is in no acute distress. Patient symptoms have remained stable since she arrived to our emergency department. Repeat vital signs were all reviewed and noted to be stable. Differential diagnosis and treatment plan were discussed with the patient at bedside. Patient agrees with discussion and after shared medical decision making agrees with admission. All questions were answered to the patient's satisfaction. Case discussed with the on-call physical security manager Dr. Aguirre at 1921 who recommended hospital admission as he plans take the patient for colonoscopy tomorrow to identify the source of the bleeding. Case discussed with the on- call hospitalist Dr. Malik at 2009 who accepted admission. Patient was made NPO and Q6H H&H were order at this time. Vital Signs Vital Signs: Vital Signs Temperature 97.6 F 07/03/25 18:01 Pulse Rate 100 07/03/25 18:01 Respiratory Rate 16 07/03/25 18:01 Blood Pressure 150/84 H 07/03/25 18:01 Pulse Oximetry 100 07/03/25 18:01 Temperature 97.6 F 07/03/25 18:01 Pulse Rate 101 H 07/03/25 18:45 Respiratory Rate 21 H 07/03/25 18:45 Blood Pressure 150/84 H 07/03/25 18:01 Pulse Oximetry 100 07/03/25 18:45 Lab Data 07/03/25 19:30 07/03/25 18:36 Labs: Lab Results 07/03/25 07/03/25 Range/Units 18:36 19:30 WBC 8.0 (4.5-10.0) K/mm3 RBC 4.42 (4.2-5.4) M/mm3 Hgb 12.6 12.6 (12.0-15.0) g/dL Hct 36.3 L 36.3 L (37.0-47.0) % MCV 82.1 (80-100) fl MCH 28.5 (26-34) pg MCHC 34.7 (32-36) g/dl RDW 12.4 (11.5-14.5) % Plt Count 231 (150-375) k/mm3 MPV 9.1 (7.4-10.4) fl Immature Gran % (Auto) 0.3 (0-0.5) % Neut % (Auto) 54.9 (45.5-73.1) % Lymph % (Auto) 36.0 (18.3-44.2) % Haakon % (Auto) 6.6 (2.6-8.5) % Eos % (Auto) 1.9 (0-4.4) % Baso % (Auto) 0.3 (0.2-1.2) % Lymph # (Auto) 2.87 (0.9-3.2) K/mm3 Haakon # (Auto) 0.5 (0.1-0.6) K/mm3 Eos # (Auto) 0.2 (0-0.3) K/mm3 Baso # (Auto) 0.0 (0.0-0.1) K/mm3 Abs Immat Gran (auto) 0.02 (0.00-0.031) K/mm3 Absolute Neuts (auto) 4.4 (1.3-6.7) K/mm3 Absolute Nucleated RBC 0.000 (0.0-0.012) K/mm3 Nucleated RBC % 0.0 (0.0-0.2) % PT 13.3 (11.1-14.7) Seconds INR 1.0 APTT 30.6 (22.3-36.8) Seconds Sodium 135 L (137-145) mmol/L Potassium 4.2 (3.4-5.0) mmol/L Chloride 104 (98-107) mmol/L Carbon Dioxide 22 (22-30) mmol/L Anion Gap 9 (4-12) mmol/L BUN 19 H (7-17) mg/dL Creatinine 0.70 (0.7-1.0) mg/dL Estim Creat Clear Calc 86 ml/min Estimated GFR > 60 (59 - ) Glucose 128 H (65-110) mg/dL Calcium 8.3 L (8.4-10.2) mg/dL Total Bilirubin 0.3 (0.2-1.3) mg/dL AST 25 (14-36) U/L ALT 22 (6-35) U/L Alkaline Phosphatase 105 (38-126) U/L Total Protein 6.7 (6.3-8.2) g/dL Albumin 3.8 (3.5-5.1) g/dL Blood Type O Negative Antibody Screen Negative Discharge Plan Discharge Clinical Impression: GI (gastrointestinal bleed) Patient Disposition: Still a Patient Condition: Improved Patient Language: Japanese Prescriptions: No Action pantoprazole 40 mg tablet,delayed release (DR/EC) 40 mg PO QAM Qty: 90 1RF Follow-up/Referrals: Demian Nolen MD [Primary Care Provider, [facility]] Time of Disposition: 19:46
[2025-07-03 19:40] LABS: Hematocrit 36.3 % (37.0-47.0); Hemoglobin 12.6 g/dL (12.0-15.0)
[2025-07-03] MEDS: SODIUM CHLORIDE 0.9% IV 1,000 ML 100 ML IV CONT (21:03)
[2025-07-03 21:05] VITALS: BP 113/74; PULSE 64; RESP 18; O2SAT 99
[2025-07-03 21:20] VITALS: BP 121/87; PULSE 96; RESP 16; TEMP 36.4; O2SAT 99
[2025-07-03 22:10] VITALS: BMI 31.4
--- NOTE | 2025-07-03 22:16 | ADMGEN ---
This patient, Pham Mckeon, was admitted to 3 [facility] Surg Room 315-02. Patient/family oriented to hospital policies and general routines including ID bracelet, bed and alarms, visiting hours, pain management, procedures, bathroom and other care routines, personal items, smoking policy, room service/diet, and visiting hours. Information on how to activate the Rapid Response Team has been discussed. Patient/Family are encouraged to report perceived risks to care and to ask questions if they do not understand what they are told or what they should do.
[2025-07-03] MEDS: ACETAMINOPHEN 325 MG TABLET 650 MG PO (22:31)
[2025-07-04] VITALS (16 sets, daily range): BP systolic 92–119; BP diastolic 53–77; PULSE 69–128; RESP 18–20; TEMP 35.9–36.7; O2SAT 96–100
[2025-07-04] MEDS: ONDANSETRON INJ 4 MG/2 ML VIAL IV PUSH (03:57)
[2025-07-04 05:43] LABS: Hematocrit 29.6 % (37.0-47.0); Hemoglobin 10.1 g/dL (12.0-15.0)
[2025-07-04] MEDS: SODIUM CHLORIDE 0.9% IV 1,000 ML 100 ML IV CONT (06:11)
--- OUTSIDE RECORDS SUMMARY | 2025-07-04 07:18 | XMS_ITS | Patient Health Record ---
Author Organization [facility] Address [address] [place], [place] [id number] Care Team Providers Care Rn Interventional Name Role Phone XochitlSHANNA valente Unavailable [phone] Demian Nolen Unavailable Unavailable Reason For Referral No Information Plan Of Treatment No Information Insurance Providers Payer Name Payer Address Payer Phone Subscriber Number Group Number Insured Name Patient Relationship to Insured Coverage Start Date Coverage End Date [employer] [address] [place] [phone] [id number] [employer] Sponsored Dependent
--- NOTE | 2025-07-04 07:45 | P.PNAN_ITS ---
Anes - Initial Pre Proc Eval Procedure: Colonoscopy Date/Time: 07/04/25 07:45 Surgeon: Timothy Pre Op Diagnosis: Gi Bleed Pre Op Diagnosis: GI Bleed Patient Data Age: 49 Gender: F Height: 1.63 m Weight: 83 kg Last Vital Signs Temp 35.9 C L 07/04/25 05:05 Pulse 75 07/04/25 05:05 Resp 18 07/04/25 05:05 BP 103/63 07/04/25 05:05 Pulse Ox 100 07/04/25 05:05 O2 Del Method Room Air 07/04/25 02:16 Allergies Allergy/AdvReac Type Severity Reaction Status Date / Time Sulfa (Sulfonamide Allergy Unknown Fever- Verified 07/13/25 07:29 Antibiotics) hives Home Medications ?Medication ?Instructions ?Recorded ?Confirmed ?Type pantoprazole 40 mg tablet,delayed 40 mg PO QAM #90 tab s 03/05/25 07/13/25 Rx release cholecalciferol (vitamin D3) 25 25 mcg PO DAILY #30 ta bs 07/05/25 07/13/25 Rx mcg (1,000 unit) tablet ferrous sulfate 325 mg (65 mg 325 mg PO DAILY #90 tabs 07/13/25 07/13/25 Rx iron) tablet,delayed release Laboratory Tests 07/03/25 07/03/25 07/04/25 18:36 19:30 05:36 WBC 8.0 K/mm3 (4.5-10.0) RBC 4.42 M/mm3 (4.2-5.4) Hgb 12.6 g/dL 12.6 g/dL 10.1 L g/dL (12.0-15.0) (12.0-15.0) (12.0-15.0) Hct 36.3 L % 36.3 L % 29.6 L % (37.0-47.0) (37.0-47.0) (37.0-47.0) MCV 82.1 fl (80-100) MCH 28.5 pg (26-34) MCHC 34.7 g/dl (32-36) RDW 12.4 % (11.5-14.5) Plt Count 231 k/mm3 (150-375) MPV 9.1 fl (7.4-10.4) Immature Gran % (Auto) 0.3 % (0-0.5) Neut % (Auto) 54.9 % (45.5-73.1) Lymph % (Auto) 36.0 % (18.3-44.2) Gates % (Auto) 6.6 % (2.6-8.5) Eos % (Auto) 1.9 % (0-4.4) Baso % (Auto) 0.3 % (0.2-1.2) Lymph # (Auto) 2.87 K/mm3 (0.9-3.2) Gates # (Auto) 0.5 K/mm3 (0.1-0.6) Eos # (Auto) 0.2 K/mm3 (0-0.3) Baso # (Auto) 0.0 K/mm3 (0.0-0.1) Abs Immat Gran (auto) 0.02 K/mm3 (0.00-0.031) Absolute Neuts (auto) 4.4 K/mm3 (1.3-6.7) Absolute Nucleated RBC 0.000 K/mm3 (0.0-0.012) Nucleated RBC % 0.0 % (0.0-0.2) PT 13.3 Seconds (11.1-14.7) INR 1.0 APTT 30.6 Seconds (22.3-36.8) Sodium 135 L mmol/L (137-145) Potassium 4.2 mmol/L (3.4-5.0) Chloride 104 mmol/L (98-107) Carbon Dioxide 22 mmol/L (22-30) Anion Gap 9 mmol/L (4-12) BUN 19 H mg/dL (7-17) Creatinine 0.70 mg/dL (0.7-1.0) Estim Creat Clear Calc 86 ml/min Estimated GFR > 60 (59 - ) Glucose 128 H mg/dL (65-110) Calcium 8.3 L mg/dL (8.4-10.2) Total Bilirubin 0.3 mg/dL (0.2-1.3) AST 25 U/L (14-36) ALT 22 U/L (6-35) Alkaline Phosphatase 105 U/L (38-126) Total Protein 6.7 g/dL (6.3-8.2) Albumin 3.8 g/dL (3.5-5.1) Blood Type O Negative Antibody Screen Negative Patient hx anesthesia problems: none Family hx anesthesia problems: none Results Review: All pre-operative results and documents have been reviewed as part of the pre- operative evaluation. [facility] Past Medical History Medical History Gastroesophageal reflux disease without esophagitis Numbness and tingling of left hand Adult BMI 38.0-38.9 kg/sq m Surgical History Surgical History H/O gastric sleeve (~03/2024) Family History Family History Father Hypertension Grandparent Cerebrovascular accident Family history of malignant neoplasm of ovary Diabetes mellitus Other Family history of arthritis Family history of malignant neoplasm Social History Social History Social History: Caffeine-none Smoking status: Never smoker Second hand tobacco smoke exposure: No Alcohol intake: current Drinks per week: 1 Substance use: never Substance use type: does not use Do You Feel Safe in your Home?: Yes Lack of Transportation: No Lack of Food: Never True Current Housing: I Have Housing Concerned About Future Housing: No Difficulty Paying Gas/Electric Bills: No Difficulty Paying for Meds: No Currently Unemployed: No Education: High School Diploma/GED Difficulty w/ Childcare or Family Care: No Living arrangements: with family Spiritual care concerns: No Anes - Eval Final PreProcedure Day of Procedure 07/04/25 07:45 Results Review: All pre-operative results and documents have been reviewed as part of the pre- operative evaluation. Informed Consent: The patient's anesthetic plan and its attendant risks and benefits were discussed with the patient/family/POA. Questions were solicited and answers provided to the satisfaction of the patient/family/POA.
--- NOTE | 2025-07-04 08:44 | P.CONGI_ITS ---
Assessment and Plan Assessment and plan (1) Post-polypectomy bleeding: Status: Acute Assessment and Plan: The patient is deemed a good candidate for the procedure. Consent signed. Will proceed. GI Consult Note Consult date/time: 07/04/25 08:44 Reason for consult: Lower GI bleed HPI: Pham Mckeon is a 49 year old female who underwent a colonoscopy on 06/26/2025. There was a 12 mm polyp in transverse colon which was resected with hot snare, and a clip was placed in the polypectomy site. She was doing well until yesterday morning when she started passing fresh blood per rectum. This was not associated with syncope or any other symptom. He was kept overnight for observation and colonoscopy. Review of Systems 2 Review of Systems: All systems reviewed & are unremarkable except as noted in HPI and below PMFSH Past Medical History Medical History Gastroesophageal reflux disease without esophagitis Numbness and tingling of left hand Adult BMI 38.0-38.9 kg/sq m Surgical History Surgical History H/O gastric sleeve (~03/2024) Family History Family History Father Hypertension Grandparent Cerebrovascular accident Family history of malignant neoplasm of ovary Diabetes mellitus Other Family history of arthritis Family history of malignant neoplasm Social History Social History Social History: Caffeine-none Smoking status: Never smoker Second hand tobacco smoke exposure: No Alcohol intake: current Drinks per week: 1 Substance use: never Substance use type: does not use Do You Feel Safe in your Home?: Yes Lack of Transportation: No Lack of Food: Never True Current Housing: I Have Housing Concerned About Future Housing: No Difficulty Paying Gas/Electric Bills: No Difficulty Paying for Meds: No Currently Unemployed: No Education: High School Diploma/GED Difficulty w/ Childcare or Family Care: No Living arrangements: with family Spiritual care concerns: No Meds Home Medications and Allergies Home Medications ?Medication ?Instructions ?Recorded ?Confirmed ?Type pantoprazole 40 mg tablet,delayed 40 mg PO QAM #90 tab s 03/05/25 07/03/25 Rx release Allergies Allergy/AdvReac Type Severity Reaction Status Date / Time Sulfa (Sulfonamide Allergy Unknown Fever- Verified 07/04/25 08:46 Antibiotics) hives Vital Signs Vital Signs - 24 hr 07/03/25 18:01 07/03/25 18:29 07/03/25 18:31 Temperature 97.6 F Pulse Rate 100 93 Respiratory Rate 16 20 Blood Pressure 150/84 H Pulse Oximetry 100 94 97 Oxygen Delivery 07/03/25 18:45 07/03/25 21:05 07/03/25 21:20 Temperature 97.6 F Pulse Rate 101 H 64 96 Respiratory Rate 21 H 18 16 Blood Pressure 113/74 121/87 Pulse Oximetry 100 99 99 Oxygen Delivery 07/04/25 00:00 07/04/25 02:16 07/04/25 04:00 Temperature Pulse Rate 128 H 79 Respiratory Rate Blood Pressure Pulse Oximetry Oxygen Delivery Room Air 07/04/25 05:05 Temperature 96.7 F L Pulse Rate 75 Respiratory Rate 18 Blood Pressure 103/63 Pulse Oximetry 100 Oxygen Delivery Exam 2 Const: General: cooperative and healthy appearing Resp: Effort & Inspection: normal respiratory effort and able to speak in complete sentences Auscultation: clear to auscultation bilaterally Cardio: Rate: regular rate Rhythm: regular rhythm GI: Inspection: normal to inspection GI Palp: No No hepatosplenomegaly present Auscultation: normal bowel sounds Rectal Exam: deferred Skin: General skin exam: normal color Psych: Appearance: grossly normal Mental Status: mental status grossly normal Results Labs 07/04/25 05:36 07/03/25 18:36 Labs: Short CBC 07/03/25 07/03/25 07/04/25 Range/Units 18:36 19:30 05:36 WBC 8.0 (4.5-10.0) K/mm3 Hgb 12.6 12.6 10.1 L (12.0-15.0) g/dL Hct 36.3 L 36.3 L 29.6 L (37.0-47.0) % Plt Count 231 (150-375) k/mm3 BMP 07/03/25 18:36 Sodium 135 L Potassium 4.2 Chloride 104 Carbon Dioxide 22 BUN 19 H Creatinine 0.70 Glucose 128 H Calcium 8.3 L Liver Function 07/03/25 Range/Units 18:36 Total Bilirubin 0.3 (0.2-1.3) mg/dL AST 25 (14-36) U/L ALT 22 (6-35) U/L Alkaline Phosphatase 105 (38-126) U/L Albumin 3.8 (3.5-5.1) g/dL
[2025-07-04] MEDS: LACTATED RINGERS 1,000 ML 150 ML IV CONT (08:47)
--- NOTE | 2025-07-04 08:48 | P.HP_ITS ---
H&P: HPI History of Present Illness Date/Time: 07/04/25 08:48 Chief Complaint: Rectal bleeding after colonoscopy Narrative: 29-year-old female underwent colonoscopy on June 26 due to a positive Cologuard. She did well and till July 03 around 4:00 p.m. she began to have painless dark to bright red rectal bleeding she had about 6 episodes of rectal bleeding with an hour 2 prior to coming to emergency room that night. She had no pain. No syncope or presyncope. No change in appetite, nausea vomiting, or abdominal pain. Bowels have been regular until July 03 No bleeding between June 26 and July 03. No prior history of rectal bleeding. Review of Systems Review of Systems: All systems reviewed & are unremarkable except as noted in HPI and below PMFSH Past Medical History Medical History Gastroesophageal reflux disease without esophagitis Numbness and tingling of left hand Adult BMI 38.0-38.9 kg/sq m Surgical History Surgical History H/O gastric sleeve (~03/2024) Family History Family History Father Hypertension Grandparent Cerebrovascular accident Family history of malignant neoplasm of ovary Diabetes mellitus Other Family history of arthritis Family history of malignant neoplasm Social History Social History Social History: Caffeine-none Smoking status: Never smoker Second hand tobacco smoke exposure: No Alcohol intake: current Drinks per week: 1 Substance use: never Substance use type: does not use Do You Feel Safe in your Home?: Yes Lack of Transportation: No Lack of Food: Never True Current Housing: I Have Housing Concerned About Future Housing: No Difficulty Paying Gas/Electric Bills: No Difficulty Paying for Meds: No Currently Unemployed: No Education: High School Diploma/GED Difficulty w/ Childcare or Family Care: No Living arrangements: with family Spiritual care concerns: No Meds Home Medications and Allergies Home Medications ?Medication ?Instructions ?Recorded ?Confirmed ?Type pantoprazole 40 mg tablet,delayed 40 mg PO QAM #90 tab s 03/05/25 07/03/25 Rx release Allergies Allergy/AdvReac Type Severity Reaction Status Date / Time Sulfa (Sulfonamide Allergy Unknown Fever- Verified 07/04/25 08:46 Antibiotics) hives Vital Signs Vital Signs - 24 hr 07/03/25 18:01 07/03/25 18:29 07/03/25 18:31 Temperature 97.6 F Pulse Rate 100 93 Respiratory Rate 16 20 Blood Pressure 150/84 H Pulse Oximetry 100 94 97 Oxygen Delivery 07/03/25 18:45 07/03/25 21:05 07/03/25 21:20 Temperature 97.6 F Pulse Rate 101 H 64 96 Respiratory Rate 21 H 18 16 Blood Pressure 113/74 121/87 Pulse Oximetry 100 99 99 Oxygen Delivery 07/04/25 00:00 07/04/25 02:16 07/04/25 04:00 Temperature Pulse Rate 128 H 79 Respiratory Rate Blood Pressure Pulse Oximetry Oxygen Delivery Room Air 07/04/25 05:05 Temperature 96.7 F L Pulse Rate 75 Respiratory Rate 18 Blood Pressure 103/63 Pulse Oximetry 100 Oxygen Delivery Exam Narrative: HEENT: EOMI, PERRL, sclerae nonicteric, pharyngeal mucosa pink and intact NECK: No JVD, adenopathy, or thyromegaly CHEST: Clear to auscultation. Normal effort. HEART: NL S1/S2, regular, no murmur ABDOMEN: BS+, soft, nontender, no mass, no bruits EXTREMITIES: No cyanosis, edema, or clubbing NEUROLOGIC: CN intact and symmetric to inspection. MUSCULOSKELETAL: Tone and strength symmetric. PSYCH: Alert. Oriented to person, place, and time. H&P: Results Labs Labs: Short CBC 07/03/25 07/03/25 07/04/25 Range/Units 18:36 19:30 05:36 WBC 8.0 (4.5-10.0) K/mm3 Hgb 12.6 12.6 10.1 L (12.0-15.0) g/dL Hct 36.3 L 36.3 L 29.6 L (37.0-47.0) % Plt Count 231 (150-375) k/mm3 BMP 07/03/25 18:36 Sodium 135 L Potassium 4.2 Chloride 104 Carbon Dioxide 22 BUN 19 H Creatinine 0.70 Glucose 128 H Calcium 8.3 L Liver Function 07/03/25 Range/Units 18:36 Total Bilirubin 0.3 (0.2-1.3) mg/dL AST 25 (14-36) U/L ALT 22 (6-35) U/L Alkaline Phosphatase 105 (38-126) U/L Albumin 3.8 (3.5-5.1) g/dL Assessment and Plan Assessment and plan (1) Post-polypectomy bleeding: Status: Acute Assessment and Plan: * Status post colonoscopy with clip post polypectomy ulcer that had exposed vessel but no active bleeding * Monitor H&H * 07/04 iron infusion * Possibly home 07/05 if stable (2) Anemia due to acute blood loss: Code(s): D62 - Acute posthemorrhagic anemia Status: Acute Assessment and Plan: * 07/04 Iron infusion (3) Iron deficiency: Code(s): E61.1 - Iron deficiency Status: Acute Assessment and Plan: * Iron infusion 07/04 (4) Gastroesophageal reflux disease without esophagitis: Code(s): K21.9 - Gastro-esophageal reflux disease without esophagitis Status: Acute Assessment and Plan: * Continue Protonix
--- NOTE | 2025-07-04 09:39 | WPDGIPROGNO ---
Progress Note: A&P Assessment and Plan (1) Post-polypectomy bleeding: Status: Acute Assessment and Plan: See colonoscopy report. Postpolypectomy ulcer in the mid ascending colon with small visible vessel in the ulcer bed, not actively bleeding. Clips placed to avoid rebleeding. Patient will be kept 24 more hours, will advance diet and provide iron infusion. Will check CBC in the morning and if stable, can discharge home. Subjective Date/time seen: 07/04/25 09:39 Objective Data Vital Signs Vital Signs: Vital Signs - 24 hr 07/03/25 18:01 07/03/25 18:29 07/03/25 18:31 Temperature 97.6 F Pulse Rate 100 93 Respiratory Rate 16 20 Blood Pressure 150/84 H Pulse Oximetry 100 94 97 Oxygen Delivery 07/03/25 18:45 07/03/25 21:05 07/03/25 21:20 Temperature 97.6 F Pulse Rate 101 H 64 96 Respiratory Rate 21 H 18 16 Blood Pressure 113/74 121/87 Pulse Oximetry 100 99 99 Oxygen Delivery 07/04/25 00:00 07/04/25 02:16 07/04/25 04:00 Temperature Pulse Rate 128 H 79 Respiratory Rate Blood Pressure Pulse Oximetry Oxygen Delivery Room Air 07/04/25 05:05 07/04/25 08:49 07/04/25 09:30 Temperature 96.7 F L 97.7 F Pulse Rate 75 70 82 Respiratory Rate 18 18 18 Blood Pressure 103/63 119/77 92/59 L Pulse Oximetry 100 100 100 Oxygen Delivery Room Air Room Air Intake/Output Intake/Output: Intake & Output 07/01/25 07/02/25 07/03/25 07/04/25 23:59 23:59 23:59 23:59 Intake Total 2200.3 Balance 2200.3 Meds/Results Medications: Active Medications Generic Name Dose Route Start Last Admin Trade Name Freq PRN Reason Stop Dose Admin Acetaminophen 650 mg 07/03/25 21:40 07/03/25 22:31 Acetaminophen 325 Mg Tablet PO 650 mg Q4H PRN Administration Mild Pain (1-3) or Fever Sodium Chloride 1,000 mls @ 100 mls/hr 07/03/25 20:15 07/04/25 06:11 Normal Saline Iv IV CONT 100 mls/hr .Q10H JEANIE Administration Lactated Ringer's 1,000 mls @ 150 mls/hr 07/04/25 07:45 07/04/25 09:29 Lr - Lactated Ringers Iv IV CONT 150 mls/hr .Q6H40M JEANIE Infusion Iron Sucrose 400 mg/ Iron 275 mls @ 78.571 mls/hr 07/04/25 10:00 Sucrose 100 mg/ Sodium IVPB 07/04/25 13:29 Chloride ONCE ONE Ondansetron HCl 4 mg 07/03/25 21:40 07/04/25 03:57 Ondansetron Inj 4 Mg/2 Ml Vial IV PUSH 4 mg Q4H PRN Administration Nausea And Vomiting Pantoprazole Sodium 40 mg 07/04/25 09:00 Pantoprazole 40 Mg Tablet PO QAM [facility] Labs Labs: Laboratory Results - last 24 hr 07/03/25 07/03/25 07/04/25 18:36 19:30 05:36 WBC 8.0 RBC 4.42 Hgb 12.6 12.6 10.1 L Hct 36.3 L 36.3 L 29.6 L MCV 82.1 MCH 28.5 MCHC 34.7 RDW 12.4 Plt Count 231 MPV 9.1 Immature Gran % (Auto) 0.3 Neut % (Auto) 54.9 Lymph % (Auto) 36.0 Mclennan % (Auto) 6.6 Eos % (Auto) 1.9 Baso % (Auto) 0.3 Lymph # (Auto) 2.87 Mclennan # (Auto) 0.5 Eos # (Auto) 0.2 Baso # (Auto) 0.0 Abs Immat Gran (auto) 0.02 Absolute Neuts (auto) 4.4 Absolute Nucleated RBC 0.000 Nucleated RBC % 0.0 PT 13.3 INR 1.0 APTT 30.6 Sodium 135 L Potassium 4.2 Chloride 104 Carbon Dioxide 22 Anion Gap 9 BUN 19 H Creatinine 0.70 Estim Creat Clear Calc 86 Estimated GFR > 60 Glucose 128 H Calcium 8.3 L Total Bilirubin 0.3 AST 25 ALT 22 Alkaline Phosphatase 105 Total Protein 6.7 Albumin 3.8 Blood Type O Negative Antibody Screen Negative
[2025-07-04] MEDS: PANTOPRAZOLE 40 MG TABLET PO (10:24)
[2025-07-04] MEDS: IRON SUCROSE COMPLEX 400 MG, IRON SUCROSE COMPLEX 100 MG in SODIUM CHLORIDE 0.9% IV 250 ML 78.57 MG IVPB (10:25)
[2025-07-04] MEDS: ACETAMINOPHEN 325 MG TABLET 650 MG PO (18:48)
[2025-07-04] MEDS: CALCIUM CARBONATE (TUMS) 500 MG (200 MG ELEMENTAL) PO (19:16)
[2025-07-05] VITALS: PULSE 74
[2025-07-05] MEDS: ACETAMINOPHEN 325 MG TABLET 650 MG PO ×2 (01:32→08:29)
[2025-07-05] MEDS: SODIUM CHLORIDE 0.9% IV 1,000 ML 100 ML IV CONT (01:35)
[2025-07-05 04:00] VITALS: PULSE 74
[2025-07-05 04:45] VITALS: BP 117/65; PULSE 70; RESP 18; TEMP 36.2; O2SAT 99
[2025-07-05 06:32] LABS: Hematocrit 27.6 % (37.0-47.0); Hemoglobin 9.2 g/dL (12.0-15.0); Mean Corpuscular HGB Conc 33.3 g/dl (32-36); Mean Corpuscular Hemoglobin 28.7 pg (26-34); Mean Corpuscular Volume 86.0 fl (80-100); Platelet Count Result 149 k/mm3 (150-375); Red Blood Count 3.21 M/mm3 (4.2-5.4); White Blood Count 4.2 K/mm3 (4.5-10.0)
[2025-07-05 08:00] VITALS: PULSE 80
[2025-07-05] MEDS: PANTOPRAZOLE 40 MG TABLET PO (08:28)
--- NOTE | 2025-07-05 09:16 | P.DS_ITS ---
DS: Admitting Diagnosis Discharge Date 07/05/2025 Admitting Diagnosis Acute GI bleeding postpolypectomy DS: Discharge Diagnosis Discharge Diagnosis (1) Post-polypectomy bleeding: Status: Acute Assessment and Plan: * Status post colonoscopy with clip post polypectomy ulcer that had exposed vessel but no active bleeding * Monitor H&H * 07/04 iron infusion * Possibly home 07/05 if stable (2) Anemia due to acute blood loss: Code(s): D62 - Acute posthemorrhagic anemia Status: Acute Assessment and Plan: * 07/04 Iron infusion (3) Iron deficiency: Code(s): E61.1 - Iron deficiency Status: Acute Assessment and Plan: * Iron infusion 07/04 (4) Gastroesophageal reflux disease without esophagitis: Code(s): K21.9 - Gastro-esophageal reflux disease without esophagitis Status: Acute Assessment and Plan: * Continue Protonix (5) Vitamin D deficiency: Code(s): E55.9 - Vitamin D deficiency, unspecified Status: Acute DS: Summary Hospital Course Hospital Course: Admitted July 03 for rectal bleeding. She had undergone colonoscopy with polypectomy on June 26. Admission on July 11 hemoglobin was 12.1. Dropped July 04-10.7. Underwent colonoscopy with clipping polypectomy site with exposed vessel that was not currently bleeding on July 04. Hemoglobin dropped to 9.2 overnight but remains pain stable at 9.0 later in the day. Platelet count was a 357804 decreased 142,000 later in the day. She was not orthostatic she tolerated a diet. She had no abdominal pain or rectal bleeding. She wished to go home and resume her normal activities. She did have iron deficiency confirmed by labs and was given 1 iron infusion during hospitalization. Vitamin-D level was also low. In addition to her usual Protonix on her and vitamin-D were added to her discharge medications. Time Spent with Patient Time attestation: Total time spent providing and/or coordinating discharge services: Exam Narrative: HEENT: EOMI, PERRL, sclerae nonicteric, pharyngeal mucosa pink and intact NECK: No JVD, adenopathy, or thyromegaly CHEST: Clear to auscultation. Normal effort. HEART: NL S1/S2, regular, no murmur ABDOMEN: BS+, soft, nontender, no mass, no bruits EXTREMITIES: No cyanosis, edema, or clubbing NEUROLOGIC: CN intact and symmetric to inspection. MUSCULOSKELETAL: Tone and strength symmetric. PSYCH: Alert. Oriented to person, place, and time. DS: Data Data Completed and Pending Labs on day of discharge: Labs from last 24 hours 07/05/25 05:39 WBC 4.2 L RBC 3.21 L Hgb 9.2 L Hct 27.6 L MCV 86.0 MCH 28.7 MCHC 33.3 RDW 13.0 Plt Count 149 L MPV 9.7 Discharge Plan Discharge Discharging Clinician: Osito Gonsalez Patient Disposition: Home Activity: as tolerated Diet: regular Patient Instructions: Rectal Bleeding (DC) Patient Language: Monegasque Stand Alone Forms: General Discharge Information Follow-up/Referrals: Demian Nolen MD [Primary Care Provider, [facility]] - Call for Appointment Discharge Medications: New cholecalciferol (vitamin D3) 25 mcg (1,000 unit) Tablet 25 mcg PO DAILY Qty: 30 0RF ferrous sulfate 325 mg (65 mg iron) Tablet,Delayed Release (Dr/Ec) 325 mg PO DAILY Qty: 30 0RF Continued pantoprazole 40 mg tablet,delayed release (DR/EC) 40 mg PO QAM Qty: 90 1RF Date of admission: 07/04/25 07:12 Primary Care Provider: Demian Nolen Admitting Provider: Elise Malik Attending physician on admission: Elise Malik Condition: Stable
[2025-07-05 11:09] LABS: Hematocrit 26.6 % (37.0-47.0); Hemoglobin 9.0 g/dL (12.0-15.0); Mean Corpuscular HGB Conc 33.8 g/dl (32-36); Mean Corpuscular Hemoglobin 28.7 pg (26-34); Mean Corpuscular Volume 84.7 fl (80-100); Platelet Count Result 142 k/mm3 (150-375); Red Blood Count 3.14 M/mm3 (4.2-5.4); White Blood Count 4.4 K/mm3 (4.5-10.0)
--- NOTE | 2025-07-05 12:01 | P.PNGI_ITS ---
Progress Note: A&P Assessment and Plan (1) Post-polypectomy bleeding: Status: Acute Plan The patient is recovering well from yesterday's colonoscopy, during which a post-polypectomy ulcer was found in the right colon and treated with three hemostatic clips. While her hemoglobin has dropped one point since yesterday, this is likely due to hemodilution from the 2400 cc of normal saline she received. Her hemoglobin levels have remained stable throughout today's monito ring. The patient received one iron infusion and is cleared for discharge. She should be sent home with a prescription for oral iron therapy to be taken once daily for two months, with follow-up care to be managed by her primary care physician as an outpatient. Subjective Date/time seen: 07/05/25 12:01 Interval history: The patient remained hemodynamically stable and did not have Bowel movements as of this morning. Objective Data Vital Signs Vital Signs: Vital Signs - 24 hr 07/04/25 14:37 07/04/25 16:00 07/04/25 18:43 Temperature 97.7 F Pulse Rate 91 78 Respiratory Rate 18 Blood Pressure 98/66 L 98/56 L Pulse Oximetry 96 Oxygen Delivery 07/04/25 20:00 07/04/25 20:00 07/04/25 20:20 Temperature 98.1 F Pulse Rate 77 79 Respiratory Rate 20 Blood Pressure 112/53 L Pulse Oximetry 100 Oxygen Delivery Room Air 07/04/25 23:30 07/05/25 00:00 07/05/25 04:00 Temperature Pulse Rate 74 74 Respiratory Rate Blood Pressure Pulse Oximetry 96 Oxygen Delivery Room Air 07/05/25 04:45 07/05/25 08:00 Temperature 97.1 F L Pulse Rate 70 80 Respiratory Rate 18 Blood Pressure 117/65 Pulse Oximetry 99 Oxygen Delivery Intake/Output Intake/Output: Intake & Output 07/02/25 07/03/25 07/04/25 07/05/25 23:59 23:59 23:59 23:59 Intake Total 3585.3 708 Balance 3585.3 708 Meds/Results Medications: Active Medications Generic Name Dose Route Start Last Admin Trade Name Freq PRN Reason Stop Dose Admin Acetaminophen 650 mg 07/03/25 21:40 07/05/25 08:29 Acetaminophen 325 Mg Tablet PO 650 mg Q4H PRN Administration Mild Pain (1-3) or Fever Ferrous Sulfate 325 mg 07/06/25 09:00 Ferrous Sulfate 325 Mg Tablet PO DAILY [facility] Sodium Chloride 1,000 mls @ 100 mls/hr 07/03/25 20:15 07/05/25 01:35 Normal Saline Iv IV CONT 100 mls/hr .Q10H JEANIE Administration Ondansetron HCl 4 mg 07/03/25 21:40 07/04/25 03:57 Ondansetron Inj 4 Mg/2 Ml Vial IV PUSH 4 mg Q4H PRN Administration Nausea And Vomiting Pantoprazole Sodium 40 mg 07/04/25 09:00 07/05/25 08:28 Pantoprazole 40 Mg Tablet PO 40 mg QAM [facility] Administration Vitamin D 25 mcg 07/06/25 09:00 Cholecalciferol (Vitamin D3) 25 Mcg (1,000 Units) Tablet PO DAILY [facility] Labs Labs: Laboratory Results - last 24 hr 07/05/25 07/05/25 05:39 10:02 WBC 4.2 L 4.4 L RBC 3.21 L 3.14 L Hgb 9.2 L 9.0 L Hct 27.6 L 26.6 L MCV 86.0 84.7 MCH 28.7 28.7 MCHC 33.3 33.8 RDW 13.0 13.2 Plt Count 149 L 142 L MPV 9.7 10.0
== END 2025-07-05 13:25 | disposition home or self-care (01) ==
LOC: ANHED 19:46 → ANH3MEDSUR 07-05 07:42
PROVIDERS: Emergency Medicine; Internal Medicine Gastroenterology; Admitting Provider Internal Medicine; Emergency Provider Emergency Medicine; PCP Family Medicine; Visit Provider Internal Medicine
PROC: 0DJD8ZZ Inspection of Lower Intestinal Tract, Via Natural or Artificial Opening Endoscopic (ICD-10-PCS; CPT 45378; principal; 2025-07-04 08:30)
DX: K91.840 Postprocedural hemorrhage of a digestive system organ or structure following a digestive system procedure (principal); K92.2 Gastrointestinal hemorrhage, unspecified; D62 Acute posthemorrhagic anemia; E61.1 Iron deficiency; Z98.84 Bariatric surgery status; Z86.0100 Personal history of colon polyps, unspecified; K63.3 Ulcer of intestine; Y83.8 Other surgical procedures as the cause of abnormal reaction of the patient, or of later complication, without mention of misadventure at the time of the procedure; E55.9 Vitamin D deficiency, unspecified; K21.9 Gastro-esophageal reflux disease without esophagitis
CPT/HCPCS: 45382; 36415; 80053; 85014; 85018; 85025; 85027; 85610; 85730; 86850; 86900; 86901; 93005; 96374; 99285; A9270; G0378; J1756; J2003; J2405; J2704; J7030; J7050; J7120

== ENCOUNTER 2025-09-24 17:45 | Emergency (ER) | payer OTHER, SELFPAY ==
--- NOTE | ~2025-09-24 | CT_ITS ---
CT abdomen pelvis w con Clinical History: abdominal pain . Comparison: None Technique: Axial images lung bases to symphysis pubis 100 mL Omnipaque 350 Coronal, sagittal reformats CT images acquired with automatic exposure control for dose reduction DLP: 1083 mGy-cm Findings: Lung bases: Clear. Visualized heart and pericardium: Unremarkable. Liver: Steatosis. Gallbladder: Stones. Spleen: Enlarged. Pancreas: Unremarkable. Adrenal glands: Unremarkable. Kidneys: Right kidney- No hydronephrosis. No renal stones. Left kidney- No hydronephrosis. No renal stones. Distal esophagus/stomach: Gastric sutures, possibly sleeve. Small bowel loops: Normal caliber and wall thickness. Colon: Normal caliber and wall thickness. Normal RLQ appendix. Stool-filled rectum. Presacral stranding. Nodes: No enlarged nodes. Peritoneum: No ascites. No free air. Urinary bladder: Unremarkable. Uterus: Unremarkable. Adnexa: No masses. Bones: No acute bony abnormality. Soft tissues: Unremarkable. Aorta: No aneurysm or dissection. IVC: Unremarkable. Main portal vein/SMV/splenic vein: Patent. IMPRESSION: 1. Mild stercoral colitis not excluded. 2. Otherwise no acute abnormality, with additional findings as above. Reviewed, dictated and finalized at location R. NE SUPERINTENDENT
[2025-09-24 18:31] VITALS: BP 152/94; PULSE 113; RESP 20; TEMP 36.5; O2SAT 100
[2025-09-24 21:40] VITALS: BP 137/96; PULSE 112; RESP 21; TEMP 37.1; O2SAT 93
[2025-09-24 22:02] VITALS: BP 150/105; PULSE 108; RESP 23; TEMP 37.1; O2SAT 96
--- NOTE | 2025-09-24 23:35 | ED_ITS ---
HPI - Abdominal Pain General Chief Complaint: Abdominal Pain <Bharti Jose APRN - Last Filed: 09/25/25 04:45> Stated Complaint: constipated x 1 week <Bharti Jose APRN - Last Filed: 09/25/25 04:45> Time Seen by Provider: 09/24/25 21:31 <Bharti Jose APRN - Last Filed: 09/25/25 04:45> History of Present Illness HPI narrative: Patient is a 50-year-old female who presents to the ER with severe abdominal pain. Patient reports she has not had a bowel movement in ?1 week. She reports she has had nausea and vomiting today with the last episode of emesis at 3pm. Her reports he tried to digitally extract her bowel movement but was unsuccessful. Patient reports she had a colonoscopy in June with a removed polyp. She reports she had to come back in due to rectal bleeding, for which she was admitted for and be given blood. Patient reports she recently started a to GLP 1 medication for weight loss. She also endorses a history of a gastric sleeve and takes iron pills. <Bharti Jose APRN - Last Filed: 09/25/25 04:45> Related Data Allergies/Adverse Reactions: Allergies Allergy/AdvReac Type Severity Reaction Status Date / Time Sulfa (Sulfonamide Allergy Unknown Fever- Verified 07/13/25 07:29 Antibiotics) hives <Bharti Jose APRN - Last Filed: 09/25/25 04:45> Review of Systems 2 Review of Systems: All systems reviewed & are unremarkable except as noted in HPI and below <Bharti Jose APRN - Last Filed: 09/25/25 04:45> PMFSH Past Medical History Medical History: Medical History Gastroesophageal reflux disease without esophagitis Numbness and tingling of left hand Adult BMI 38.0-38.9 kg/sq m <JUANIS Kinsey Last Filed: 09/25/25 04:45> Surgical History Surgical History: Surgical History H/O gastric sleeve (~03/2024) <Bharti Jose APRN - Last Filed: 09/25/25 04:45> Family History Family History: Family History Father Hypertension Grandparent Cerebrovascular accident Family history of malignant neoplasm of ovary Diabetes mellitus Other Family history of arthritis Family history of malignant neoplasm <Bharti Jose APRN - Last Filed: 09/25/25 04:45> Social History Social History: Social History Social History: Caffeine-none Smoking status: Never smoker Second hand tobacco smoke exposure: No Alcohol intake: current Drinks per week: 1 Substance use: never Substance use type: does not use Lack of Transportation: No Lack of Food: Never True Current Housing: I Have Housing Concerned About Future Housing: No Difficulty Paying Gas/Electric Bills: No Difficulty Paying for Meds: No Currently Unemployed: No Education: High School Diploma/GED Difficulty w/ Childcare or Family Care: No Living arrangements: with family Spiritual care concerns: No <Bharti Jose APRN - Last Filed: 09/25/25 04:45> Exam 2 Narrative: GENERAL: Ill appearing, well-nourished, non-toxic, in mild distress due to pain. HEAD: Normocephalic, atraumatic. NECK: Supple. No adenopathy, no masses. RESPIRATORY: Airway patent, respirations nonlabored. Clear to auscultation bilaterally, no rales, rhonchi, wheezing. CARDIOVASCULAR: Tachycardia without murmurs, rubs, or gallops. Peripheral pulses 2+ and equal bilaterally. ABDOMINAL: Soft, generalized tenderness, distension. Normoactive BS. MUSCULOSKELETAL: Moves all extremities. Strength/ROM intact without gross deformities. SKIN: Warm, dry, normal color. No rashes. NEURO: A&O X3. Speech clear. Cranial nerves II-XII intact. No ataxic movements. PSYCHIATRIC: Appropriate mood and affect. Normal interaction. <Bharti Jose APRN - Last Filed: 09/25/25 04:45> Course SUPERVISOR FRONT/PA Physician Supervision This visit was performed by both a physician and an APC. I performed all aspects of the MDM as documented. <Valentin Coley, DO - Last Filed: 09/25/25 06:49> Vital Signs Vital signs: Vital Signs Temperature 97.7 F 09/24/25 18:31 Pulse Rate 113 H 09/24/25 18:31 Respiratory Rate 20 09/24/25 18:31 Blood Pressure 152/94 H 09/24/25 18:31 Pulse Oximetry 100 09/24/25 18:31 Oxygen Delivery Room Air 09/24/25 18:31 Temperature 98.4 F 09/25/25 01:19 Pulse Rate 104 H 09/25/25 01:19 Respiratory Rate 20 09/25/25 01:19 Blood Pressure 126/86 09/25/25 01:19 Pulse Oximetry 96 09/25/25 01:19 Oxygen Delivery Room Air 09/24/25 18:31 <Bharti Jose, ENVIRONMENTAL AIR SPECIALIST - Last Filed: 09/25/25 04:45> Vital Signs Temperature 97.7 F 09/24/25 18:31 Pulse Rate 113 H 09/24/25 18:31 Respiratory Rate 20 09/24/25 18:31 Blood Pressure 152/94 H 09/24/25 18:31 Pulse Oximetry 100 09/24/25 18:31 Oxygen Delivery Room Air 09/24/25 18:31 Temperature 98.4 F 09/25/25 01:19 Pulse Rate 104 H 09/25/25 01:19 Respiratory Rate 20 09/25/25 01:19 Blood Pressure 126/86 09/25/25 01:19 Pulse Oximetry 96 09/25/25 01:19 Oxygen Delivery Room Air 09/24/25 18:31 <Valentin Coley, DO - Last Filed: 09/25/25 06:49> MDM MDM Narrative Medical decision making narrative: Patient is a 50-year-old female who presents to the ER with severe abdominal pain. Patient reports she has not had a bowel movement in ?1 week. She reports she has had nausea and vomiting today with the last episode of emesis at 3pm. Her reports he tried to digitally extract her bowel movement but was unsuccessful. Patient reports she had a colonoscopy in June with a removed polyp. She reports she had to come back in due to rectal bleeding, for which she was admitted for and be given blood. Patient reports she recently started a to GLP-1 medication for weight loss. She also endorses a history of a gastric sleeve and takes iron pills. Labs Ordered: CBC, CMP, lipase, UA, PTT, INR, lactic acid Imaging Ordered: CT abdomen pelvis Medications Ordered: 1 L normal saline IV bolus, Zofran 4 mg IV, Bentyl 20 mg IM, Tylenol 1 g p.o. Results: Patient's CT scan indicates gastric sutures. No bowel obstruction or ileus. No evidence for appendicitis. Abundant stool throughout the colon. No evidence for diverticulitis. No free fluid. Liver is unremarkable. Multiple noncalcified gallstones within the gallbladder. Gallbladder otherwise unremarkable. No biliary ductal dilation. Pancreas is unremarkable. Spleen is enlarged 13.6 cm length. No obstructive uropathy. Kidneys are unremarkable. Urinary bladder is unremarkable. Uterus and ovaries are grossly unremarkable. Mild bilateral dependent atelectasis. Diagnosis: constipation Patient Education/Shared MDM: Results of lab work and imaging shared with patient and her . She is sitting on the commode, but has failed to produce any substantial stool. It was strongly advised pt receive the soap suds enema. * Pt was advised to consider refraining from further GLP-1 use, as this may be contributing to her symptoms. [address] signed out to Dr. Coley pending enema results. <Bharti Jose, JUANIS - Last Filed: 09/25/25 04:45> Patient is a 50-year-old female who presents to the ER with severe abdominal pain. Patient reports she has not had a bowel movement in ?1 week. She reports she has had nausea and vomiting today with the last episode of emesis at 3pm. Her reports he tried to digitally extract her bowel movement but was unsuccessful. Patient reports she had a colonoscopy in June with a removed polyp. She reports she had to come back in due to rectal bleeding, for which she was admitted for and be given blood. Patient reports she recently started a to GLP-1 medication for weight loss. She also endorses a history of a gastric sleeve and takes iron pills. Labs Ordered: CBC, CMP, lipase, UA, PTT, INR, lactic acid Imaging Ordered: CT abdomen pelvis Medications Ordered: 1 L normal saline IV bolus, Zofran 4 mg IV, Bentyl 20 mg IM, Tylenol 1 g p.o. Results: Patient's CT scan indicates gastric sutures. No bowel obstruction or ileus. No evidence for appendicitis. Abundant stool throughout the colon. No evidence for diverticulitis. No free fluid. Liver is unremarkable. Multiple noncalcified gallstones within the gallbladder. Gallbladder otherwise unremarkable. No biliary ductal dilation. Pancreas is unremarkable. Spleen is enlarged 13.6 cm length. No obstructive uropathy. Kidneys are unremarkable. Urinary bladder is unremarkable. Uterus and ovaries are grossly unremarkable. Mild bilateral dependent atelectasis. Diagnosis: constipation Patient Education/Shared MDM: Results of lab work and imaging shared with patient and her . She is sitting on the commode, but has failed to produce any substantial stool. It was strongly advised pt receive the soap suds enema. * Pt was advised to consider refraining from further GLP-1 use, as this may be contributing to her symptoms. [address] [place] [address] Coley pending enema results. Patient was reassessed at the bedside. Patient is in no acute distress. Patient notes that she feels well at this time and is ready to go home. Patient had a very large bowel movement with the enema, denies any pain. Patient tolerating oral intake. The patient has remained stable throughout the entire ED visit. Counseled patient regarding diagnostic results and potential diagnosis. Anticipatory guidance provided. Patient instructed to follow up with PCP within 1 week. Patient counseled on: false reassurance from an emergency department evaluation; no current evidence of a medical emergency; return immediately for any new, recurrent, worsening, concerning, or refractory symptoms. Patient prescribed Metamucil, senna, MiraLax, zofran. Prescription sent to preferred pharmacy. Medications discussed with patient. Additional verbal and printed discharge instructions were given and discussed with the patient. Patient verbally acknowledges understanding of condition and discharge instructions. All questions were answered to the patient's satisfaction. Patient is in agreement with the plan of care. The patient is stable for discharge and was discharged without incident. <Valentin Coley DO - Last Filed: 09/25/25 06:49> Differential Diagnosis Differential Diagnosis: Constipation, small-bowel obstruction, ileus, cholelithiasis, kidney stone <Bharti Jose APRN - Last Filed: 09/25/25 04:45> Lab Data [facility] Lab Attestation statement: I personally reviewed the patient's lab results. <Bharti Jose APRN - Last Filed: 09/25/25 04:45> Result diagrams: 09/24/25 23:48 09/24/25 23:48 <Bharti Jose APRN - Last Filed: 09/25/25 04:45> Labs: Lab Results 09/24/25 09/25/25 Range/Units 23:48 01:18 WBC 15.6 H (4.5-10.0) K/mm3 RBC 6.17 H (4.2-5.4) M/mm3 Hgb 16.9 H D (12.0-15.0) g/dL Hct 48.9 H (37.0-47.0) % MCV 79.3 L (80-100) fl MCH 27.4 (26-34) pg MCHC 34.6 (32-36) g/dl RDW 12.5 (11.5-14.5) % Plt Count 222 D (150-375) k/mm3 MPV 9.0 (7.4-10.4) fl Immature Gran % (Auto) 4.5 H (0-0.5) % Neut % (Auto) 89.7 H (45.5-73.1) % Lymph % (Auto) 3.1 L (18.3-44.2) % [place] % (Auto) 2.6 (2.6-8.5) % Eos % (Auto) 0.0 (0-4.4) % Baso % (Auto) 0.1 L (0.2-1.2) % Lymph # (Auto) 0.49 L (0.9-3.2) K/mm3 [place] # (Auto) 0.4 (0.1-0.6) K/mm3 Eos # (Auto) 0.0 (0-0.3) K/mm3 Baso # (Auto) 0.0 (0.0-0.1) K/mm3 Abs Immat Gran (auto) 0.70 H (0.00-0.031) K/mm3 Absolute Neuts (auto) 14.0 H (1.3-6.7) K/mm3 Absolute Nucleated RBC 0.000 (0.0-0.012) K/mm3 Nucleated RBC % 0.0 (0.0-0.2) % PT 13.6 (11.1-14.7) Seconds INR 1.0 APTT 31.0 (22.3-36.8) Seconds Sodium 133 L (137-145) mmol/L Potassium 4.2 (3.4-5.0) mmol/L Chloride 103 (98-107) mmol/L Carbon Dioxide 24 (22-30) mmol/L Anion Gap 6 (4-12) mmol/L BUN 13 D (7-17) mg/dL Creatinine 0.76 (0.7-1.0) mg/dL Estim Creat Clear Calc Not Reportable Estimated GFR > 60 (59 - ) Glucose 125 H (65-110) mg/dL Lactic Acid 1.3 (0.7-2.0) mmol/L Calcium 9.6 (8.4-10.2) mg/dL Total Bilirubin 0.6 (0.2-1.3) mg/dL AST 27 (14-36) U/L ALT 22 (6-35) U/L Alkaline Phosphatase 111 (38-126) U/L Total Protein 8.6 H (6.3-8.2) g/dL Albumin 4.8 (3.5-5.1) g/dL Lipase 33 (23-300) U/L Urine Color Yellow (Yellow) Urine Appearance Clear (Clear) Urine pH 6.5 (5.0-9.0) Ur Specific [place] > 1.045 H (1.001-1.035) Urine Protein 1+ H (Negative) mg/dL Urine Glucose (UA) Negative (Negative) mg/dL Urine Ketones Trace H (Negative) mg/dL Ur Blood (Man) 2+ H (Negative) Urine Nitrate Negative (Negative) Urine Bilirubin Negative (Negative) Urine Urobilinogen 0.2 (<2.0) mg/dL Leukocyte Esterase Rfl Negative (Negative) SHAUNA/UL Urine RBC 11-20 H (0-2) /hpf Urine WBC 0-5 (0-3) /hpf Ur Squamous Epith Cells Few (Few) /hpf Urine Bacteria 1+ H /hpf Urine Casts 0-2 <Bharti Jose, JUANIS - Last Filed: 09/25/25 04:45> Lab Results 09/24/25 09/25/25 Range/Units 23:48 01:18 WBC 15.6 H (4.5-10.0) K/mm3 RBC 6.17 H (4.2-5.4) M/mm3 Hgb 16.9 H D (12.0-15.0) g/dL Hct 48.9 H (37.0-47.0) % MCV 79.3 L (80-100) fl MCH 27.4 (26-34) pg MCHC 34.6 (32-36) g/dl RDW 12.5 (11.5-14.5) % Plt Count 222 D (150-375) k/mm3 MPV 9.0 (7.4-10.4) fl Immature Gran % (Auto) 4.5 H (0-0.5) % Neut % (Auto) 89.7 H (45.5-73.1) % Lymph % (Auto) 3.1 L (18.3-44.2) % [place] % (Auto) 2.6 (2.6-8.5) % Eos % (Auto) 0.0 (0-4.4) % Baso % (Auto) 0.1 L (0.2-1.2) % Lymph # (Auto) 0.49 L (0.9-3.2) K/mm3 [place] # (Auto) 0.4 (0.1-0.6) K/mm3 Eos # (Auto) 0.0 (0-0.3) K/mm3 Baso # (Auto) 0.0 (0.0-0.1) K/mm3 Abs Immat Gran (auto) 0.70 H (0.00-0.031) K/mm3 Absolute Neuts (auto) 14.0 H (1.3-6.7) K/mm3 Absolute Nucleated RBC 0.000 (0.0-0.012) K/mm3 Nucleated RBC % 0.0 (0.0-0.2) % PT 13.6 (11.1-14.7) Seconds INR 1.0 APTT 31.0 (22.3-36.8) Seconds Sodium 133 L (137-145) mmol/L Potassium 4.2 (3.4-5.0) mmol/L Chloride 103 (98-107) mmol/L Carbon Dioxide 24 (22-30) mmol/L Anion Gap 6 (4-12) mmol/L BUN 13 D (7-17) mg/dL Creatinine 0.76 (0.7-1.0) mg/dL Estim Creat Clear Calc Not Reportable Estimated GFR > 60 (59 - ) Glucose 125 H (65-110) mg/dL Lactic Acid 1.3 (0.7-2.0) mmol/L Calcium 9.6 (8.4-10.2) mg/dL Total Bilirubin 0.6 (0.2-1.3) mg/dL AST 27 (14-36) U/L ALT 22 (6-35) U/L Alkaline Phosphatase 111 (38-126) U/L Total Protein 8.6 H (6.3-8.2) g/dL Albumin 4.8 (3.5-5.1) g/dL Lipase 33 (23-300) U/L Urine Color Yellow (Yellow) Urine Appearance Clear (Clear) Urine pH 6.5 (5.0-9.0) Ur Specific [place] > 1.045 H (1.001-1.035) Urine Protein 1+ H (Negative) mg/dL Urine Glucose (UA) Negative (Negative) mg/dL Urine Ketones Trace H (Negative) mg/dL Ur Blood (Man) 2+ H (Negative) Urine Nitrate Negative (Negative) Urine Bilirubin Negative (Negative) Urine Urobilinogen 0.2 (<2.0) mg/dL Leukocyte Esterase Rfl Negative (Negative) SHAUNA/UL Urine RBC 11-20 H (0-2) /hpf Urine WBC 0-5 (0-3) /hpf Ur Squamous Epith Cells Few (Few) /hpf Urine Bacteria 1+ H /hpf Urine Casts 0-2 <Valentin Coley DO - Last Filed: 09/25/25 06:49> Imaging Data Attestation: I personally reviewed and interpreted this imaging study as follows: < Bharti Jose APRN - Last Filed: 09/25/25 04:45> Radiologist's impression: Patient's CT scan indicates gastric sutures. No bowel obstruction or ileus. No evidence for appendicitis. Abundant stool throughout the colon. No evidence for diverticulitis. No free fluid. Liver is unremarkable. Multiple noncalcified gallstones within the gallbladder. Gallbladder otherwise unremarkable. No biliary ductal dilation. Pancreas is unremarkable. Spleen is enlarged 13.6 cm length. No obstructive uropathy. Kidneys are unremarkable. Urinary bladder is unremarkable. Uterus and ovaries are grossly unremarkable. Mild bilateral dependent atelectasis. <Bhartieliza Jose APRN - Last Filed: 09/25/25 04:45> Discharge Plan Discharge Clinical Impression: Constipation by delayed colonic transit, Abdominal pain <Bharti Jose APRN - Last Filed: 09/25/25 04:45> Patient Disposition: Home <Bhartieliza Jose APRN - Last Filed: 09/25/25 04:45> Condition: Stable <Bhartieliza Jose APRN - Last Filed: 09/25/25 04:45> Instructions: Antibiotic Form, Constipation (ED), Acute Nausea and Vomiting (ED), Abdominal Pain (ED) <Bharti Jose APRN - Last Filed: 09/25/25 04:45> Additional Instructions: Increase your water intake, take the fiber supplements and increase your fiber intake, exercise. Follow up with your primary care physician in the next 1 week for reassessment. Take the bowel regiment as prescribed as needed. Take the Zofran as needed for nausea. Return immediately to the emergency department for any new or concerning symptoms especially any emergent concerns for life, limb, eyesight. <Bharti Jose APRN - Last Filed: 09/25/25 04:45> Patient Language: Romanian <Bhartieliza Jose APRN - Last Filed: 09/25/25 04:45> Prescriptions: New polyethylene glycol 3350 [Miralax] 17 gram/dose powder 17 g PO DAILY Qty: 119 0RF ondansetron 4 mg tablet,disintegrating 4 mg PO Q8H PRN (Reason: nausea and vomiting) Qty: 14 0RF senna 8.6 mg capsule 8.6 mg PO DAILY Qty: 30 0RF Metamucil 3.4 gram/5.4 gram powder 1 tbsp PO DAILY Qty: 660 0RF Rx Instructions: mix into at least 8 oz of water or juice before administering No Action pantoprazole 40 mg tablet,delayed release (DR/EC) 40 mg PO QAM Qty: 90 1RF ferrous sulfate 325 mg (65 mg iron) tablet,delayed release (DR/EC) 325 mg PO DAILY Qty: 90 0RF cholecalciferol (vitamin D3) 25 mcg (1,000 unit) Tablet 25 mcg PO DAILY Qty: 30 0RF <Bharti Jose APRN - Last Filed: 09/25/25 04:45> Follow-up/Referrals: Demian Nolen MD [Primary Care Provider, Family Practice] - 1 Week <Bharti Jose APRN - Last Filed: 09/25/25 04:45> Time of Disposition: 06:48 <Bharti Jose APRN - Last Filed: 09/25/25 04:45> 06:48 <Valentin Coley DO - Last Filed: 09/25/25 06:49>
[2025-09-24] MEDS: DICYCLOMINE HCL INJ 20 MG/2 ML VIAL IM (23:53)
[2025-09-24] MEDS: SODIUM CHLORIDE 0.9% IV 1,000 ML 999 ML IV CONT (23:53)
[2025-09-24] MEDS: ONDANSETRON INJ 4 MG/2 ML VIAL IV PUSH (23:54)
[2025-09-25] VITALS: BP 142/102; PULSE 107; RESP 14; TEMP 36.9; O2SAT 97
--- NOTE | 2025-09-25 | ECG_ITS ---
Test Date: 2025-09-25 01:34:24 Measurements Intervals [place] Rate: 101 P: 54 LA: 172 QRS: 24 QRSD: 98 T: 52 QT: 362 QTc: 471 Interpretive Statements SINUS TACHYCARDIA LEFT ATRIAL ENLARGEMENT INCOMPLETE RIGHT BUNDLE BRANCH BLOCK DELAYED PRECORDIAL R/S TRANSITION BORDERLINE T WAVE ABNORMALITY- ANTERIOR LEADS BORDERLINE ECG NONSPECIFIC T-WAVE ABNORMALITY Compared to ECG 07/03/2025 18:38:16 NO SIGNIFICANT CHANGE Electronically Signed On 09-25-2025 08:08:09 PROPERTY FIELD ADJUSTER by Jay Davila D.O.
[2025-09-25] MEDS: ACETAMINOPHEN 500 MG TABLET 1000 MG PO (00:03)
[2025-09-25 00:05] LABS: INR 1.0; Prothrombin Time 13.6 Seconds (11.1-14.7)
[2025-09-25 00:06] LABS: Partial Thromboplastin Time 31.0 Seconds (22.3-36.8)
[2025-09-25 00:07] LABS: Alanine Aminotransferase 22 U/L (6-35); Albumin Level 4.8 g/dL (3.5-5.1); Alkaline Phosphatase 111 U/L (38-126); Anion Gap 6 mmol/L (4-12); Aspartate Amino Transferase 27 U/L (14-36); Bilirubin,Total 0.6 mg/dL (0.2-1.3); Blood Urea Nitrogen 13 mg/dL (7-17); Calcium 9.6 mg/dL (8.4-10.2); Carbon Dioxide 24 mmol/L (22-30); Chloride 103 mmol/L (98-107); Estimated Glomerular Filt Rate > 60; Glucose 125 mg/dL (65-110); Lipase 33 U/L (23-300); Potassium 4.2 mmol/L (3.4-5.0); Sodium 133 mmol/L (137-145); Total Protein 8.6 g/dL (6.3-8.2)
[2025-09-25 00:15] LABS: Hematocrit 48.9 % (37.0-47.0); Hemoglobin 16.9 g/dL (12.0-15.0); Immature Granulocyte Percent A 4.5 % (0-0.5); Lymphocytes Absolute Auto 0.49 K/mm3 (0.9-3.2); Mean Corpuscular HGB Conc 34.6 g/dl (32-36); Mean Corpuscular Hemoglobin 27.4 pg (26-34); Mean Corpuscular Volume 79.3 fl (80-100); Nucleated Red Blood Cells Absolute Auto 0.000 K/mm3 (0.0-0.012); Nucleated Red Blood Cells Perc 0.0 % (0.0-0.2); Platelet Count Result 222 k/mm3 (150-375); Red Blood Count 6.17 M/mm3 (4.2-5.4); White Blood Count 15.6 K/mm3 (4.5-10.0)
[2025-09-25 01:19] VITALS: BP 126/86; PULSE 104; RESP 20; TEMP 36.9; O2SAT 96
[2025-09-25 01:37] LABS: Add Urine Microscopic? YES; Appearance Urine Clear (Clear); Glucose Urine UA Negative (Negative); Leukocyte Esterase Ur Negative LEU/UL (Negative); Nitrate Urine Negative (Negative); Non Pathogenic Casts 0-2; Specific Grav Ur > 1.045 (1.001-1.035)
[2025-09-25 02:30] VITALS: BP 134/86; PULSE 102; RESP 19; O2SAT 98
[2025-09-25 05:13] VITALS: BP 138/93; PULSE 99; RESP 19; O2SAT 98
[2025-09-25] MEDS: ONDANSETRON INJ 4 MG/2 ML VIAL IV PUSH (05:41)
[2025-09-25] MEDS: ACETAMINOPHEN 325 MG TABLET 650 MG PO (05:58)
[2025-09-25] MEDS: SODIUM CHLORIDE 0.9% IV 1,000 ML 999 ML IV CONT (05:58)
[2025-09-25 06:00] VITALS: BP 142/89; PULSE 97; RESP 23; TEMP 37.1; O2SAT 96
[2025-09-25 07:05] VITALS: BP 126/83; PULSE 90; RESP 18; TEMP 36.9; O2SAT 97
== END 2025-09-25 07:13 | disposition home or self-care (01) ==
PROVIDERS: Registered Nurse; Emergency Provider Student in an Organized Health Care Education/Training Program; PCP Family Medicine
DX: K59.00 Constipation, unspecified (principal); R10.9 Unspecified abdominal pain; Z98.84 Bariatric surgery status
CPT/HCPCS: 36415; 74177; 80053; 81001; 83605; 83690; 85025; 85610; 85730; 93005; 96361; 96372; 96374; 99284; A9270; J0500; J2405; J7030; Q9967